=== PATIENT | male | born 1955 | race Caucasian/White ===

== ENCOUNTER 2020-03-13 21:01 | Emergency (ER) | payer OTHER ==
[2020-03-13] MEDS ORDERED: ACETAMINOPHEN 325 MG TABLET PO STA (21:34)
--- NOTE | 2020-03-13 21:34 | ED Physician Documentation ---
History of Present Illness - Stated complaint Stated Complaint: FEVER, WEAKNESS - Chief complaint Chief Complaint: Fever - History obtained from History obtained from: Patient (65-year-old male presents with a chief complaint of fever. He does have a history of liver transplant and 2008. He denies any other complaints. Denies headache, neck pain, cough.Receives his care at the [facility].) Review of Systems Constitutional: reports: Fever Eyes: reports: Reviewed and negative Ears: reports: Reviewed and negative Nose: reports: Reviewed and negative Throat: reports: Reviewed and negative Cardiac: reports: Reviewed and negative Respiratory: reports: Reviewed and negative GI: reports: Reviewed and negative : reports: Reviewed and negative Skin: reports: Reviewed and negative Musculoskeletal: reports: Reviewed and negative Neurologic: reports: Reviewed and negative Psychiatric: reports: Reviewed and negative Endocrine: reports: Reviewed and negative Immunocompromised: reports: Reviewed and negative PD PAST MEDICAL HISTORY - Present Medications Home Medications: Ambulatory Orders Medication Instructions Recorded Confirmed Aspirin 81 mg PO DAILY 03/13/20 03/13/20 Metoprolol Tartrate 100 mg PO BID 03/13/20 03/13/20 Saw [place] 160 mg PO BID 03/13/20 03/13/20 amLODIPine [Norvasc] 5 mg PO ONCE 03/13/20 03/13/20 - Allergies Allergies/Adverse Reactions: Allergies Allergy/AdvReac Type Severity Reaction Status Date / Time No Known Drug Allergies Allergy Verified 03/13/20 21:20 PD ED PE NORMAL - Vitals Vital signs reviewed: Yes - General General: Alert and oriented X 3, No acute distress, Well developed/nourished - HEENT HEENT: PERRL - Neck Neck: Supple, no meningeal sign - Cardiac Cardiac: RRR, No murmur, Strong equal pulses - Respiratory Respiratory: No respiratory distress, Clear bilaterally - Abdomen Abdomen: Normal bowel sounds, Soft, Non tender, Non distended - Derm Derm: Warm and dry - Extremities Extremities: No deformity - Neuro Neuro: Alert and oriented X 3 - Psych Psych: Normal mood, Normal affect Results - Vitals Vitals: Vital Signs - 24 hr 03/13/20 03/13/20 03/14/20 21:18 22:45 01:05 Temperature 38.8 C H 37.7 C H 99.0 C H Heart Rate 96 79 Respiratory 20 14 Rate Blood Pressure 125/75 129/84 H O2 Saturation 93 97 Oxygen O2 Source Room air - EKG (time done) 22:41 Rate: Other (no stemi) - Labs Labs: Laboratory Tests 03/13/20 03/13/20 03/13/20 21:42 21:42 21:42 WBC 10.7 RBC 4.72 Hgb 14.3 Hct 40.5 L MCV 85.8 MCH 30.3 MCHC 35.3 RDW 12.9 Plt Count 163 MPV 9.5 Neut # (Auto) 9.6 H Lymph # (Auto) 0.5 L [place] # (Auto) 0.6 Eos # (Auto) 0.0 Baso # (Auto) 0.0 Absolute Nucleated RBC 0.00 Nucleated RBC % 0.0 Sodium 135 Potassium 4.3 Chloride 99 L Carbon Dioxide 27 Anion Gap 9.0 BUN 17 Creatinine 1.0 Estimated GFR (MDRD) 75 L Glucose 171 H Lactic Acid 1.7 Calcium 8.6 Total Bilirubin 1.2 H AST 21 ALT 10 Alkaline Phosphatase 73 Troponin I High Sens Total Protein 8.3 H Albumin 4.1 Globulin 4.2 Albumin/Globulin Ratio 1.0 Lipase 24 Urine Color Urine Clarity Urine pH Ur Specific [place] Urine Protein Urine Glucose (UA) Urine Ketones Urine Occult Blood Urine Nitrite Urine Bilirubin Urine Urobilinogen Ur Leukocyte Esterase Ur Microscopic Review Urine Culture Comments 03/13/20 03/14/20 21:42 00:15 WBC RBC Hgb Hct MCV MCH MCHC RDW Plt Count MPV Neut # (Auto) Lymph # (Auto) [place] # (Auto) Eos # (Auto) Baso # (Auto) Absolute Nucleated RBC Nucleated RBC % Sodium Potassium Chloride Carbon Dioxide Anion Gap BUN Creatinine Estimated GFR (MDRD) Glucose Lactic Acid Calcium Total Bilirubin AST ALT Alkaline Phosphatase Troponin I High Sens 4.4 Total Protein Albumin Globulin Albumin/Globulin Ratio Lipase Urine Color YELLOW Urine Clarity CLEAR Urine pH 6.5 Ur Specific [place] 1.010 Urine Protein NEGATIVE Urine Glucose (UA) NEGATIVE Urine Ketones NEGATIVE Urine Occult Blood NEGATIVE Urine Nitrite NEGATIVE Urine Bilirubin NEGATIVE Urine Urobilinogen 0.2 (NORMAL) Ur Leukocyte Esterase NEGATIVE Ur Microscopic Review NOT INDICATED Urine Culture Comments NOT INDICATED PD MEDICAL DECISION MAKING - ED course Complexity details: reviewed results (Patient's labs are unremarkable, chest x- ray is unremarkable, lactate is normal. I did recommend admission for observation however the patient would like to be discharged.), re-evaluated patient, considered differential (Bacteremia, COVID-19, pneumonia, UTI, Liver transplant complication.), d/w patient, d/w family, other (I did recommend admission. The patient would like to be discharged she does have medical decision-making capability and capacity and assumes all risk and liability to include any possible adverse event events such as disability and/or .) Departure - Departure Disposition: 01 Home, Self Care Clinical Impression: Fever Qualifiers: Fever type: unspecified Qualified Code(s): R50.9 - Fever, unspecified Condition: Stable Instructions: ED Fever Unconf Cause Follow-Up: your, doctor [Other] - 03/14/20 Comments: Follow-up with your physician today. Discharge Date/Time: 03/14/20 01:05
[2020-03-13 21:58] LABS: BASOPHILS % (AUTO) 0.4 %; EOSINOPHILS % (AUTO) 0.1 %; HGB - HEMOGLOBIN 14.3 g/dL (14.0-18.0); LYMPHOCYTES # (AUTO) 0.5 10^3/uL (1.5-3.5); LYMPHOCYTES % (AUTO) 4.4 %; MEAN CORPUSCULAR HEMOGLOBIN 30.3 pg (27.0-31.0); MEAN CORPUSCULAR HGB CONC 35.3 g/dL (32.0-36.0); MEAN CORPUSCULAR VOLUME 85.8 fL (80.0-94.0); MEAN PLATELET VOLUME 9.5 fL (7.4-11.4); MONOCYTES # (AUTO) 0.6 10^3/uL (0.0-1.0); MONOCYTES % (AUTO) 5.3 %; NEUTROPHILS # (AUTO) 9.6 10^3/uL (1.5-6.6); NEUTROPHILS % (AUTO) 89.3 %; PLT - PLATELET COUNT 163 10^3/uL (130-450); RED BLOOD COUNT 4.72 10^6/uL (4.70-6.10); RED CELL DISTRIBUTION WIDTH 12.9 % (12.0-15.0); WHITE BLOOD COUNT 10.7 x10^3/uL (4.8-10.8)
[2020-03-13 22:14] LABS: ALBUMIN 4.1 g/dL (3.2-5.5); BILIRUBIN,TOTAL 1.2 mg/dL (0.2-1.0); CALCIUM 8.6 mg/dL (8.5-10.3); TOTAL PROTEIN 8.3 g/dL (6.7-8.2)
[2020-03-13] MEDS ORDERED: SODIUM CHLORIDE 0.9% 1,000 ML IV STA (23:01)
[2020-03-13] MEDS ORDERED: IBUPROFEN 800 MG TABLET PO STA (23:19)
[2020-03-14 00:31] LABS: BILIRUBIN,URINE NEGATIVE (NEGATIVE); GLUCOSE, URINE (UA) NEGATIVE (NEGATIVE); KETONES,URINE (UA) NEGATIVE (NEGATIVE); LEUKOCYTE ESTERASE, URINE NEGATIVE (NEGATIVE); NITRITE,URINE NEGATIVE (NEGATIVE); OCCULT BLOOD,URINE NEGATIVE (NEGATIVE); PH,URINE 6.5 PH (5.0-7.5); PROTEIN,URINE NEGATIVE (NEGATIVE); UROBILINOGEN,URINE 0.2 (NORMAL) E.U./dL (NORMAL)
[2020-03-14 00:32] LABS: CLARITY,URINE CLEAR (CLEAR)
[2020-03-14 01:06] VITALS: BP 129/84
--- NOTE | 2020-03-14 08:50 | XRAY Report ---
PROCEDURE: Chest 1 View X-Ray INDICATIONS: fever TECHNIQUE: One view of the chest was acquired. COMPARISON: None FINDINGS: Surgical changes and devices: None. Lungs and pleura: No pleural effusions or pneumothorax. Lungs are clear. Mediastinum: Mediastinal contours appear normal. Heart size is normal. Bones and chest wall: No suspicious bony lesions. Overlying soft tissues appear unremarkable. IMPRESSION: No acute cardiopulmonary disease process. Reviewed by: Reema Molina MD, PhD on 03/14/2020 8:48 AM PDT Approved by: Reema Molina MD, PhD on 03/14/2020 8:48 AM PDT Station ID: [id number]
== END 2020-03-14 01:05 | disposition home or self-care (01) ==
LOC: ED 21:01
DX: R50.9 Fever, unspecified (principal); Z20.828 Contact with and (suspected) exposure to other viral communicable diseases; Z94.4 Liver transplant status; Z79.82 Long term (current) use of aspirin
CPT/HCPCS: 36415; 71045; 80053; 81003; 83605; 83690; 84484; 85025; 87040; 87635; 93005; 99283; 99284; A9270; 81001; 87086

== ENCOUNTER 2022-09-09 13:16 | Outpatient (CLI) | payer OTHER | END 2022-09-09 13:17 | disposition EMS.NT | LOC: EMS 13:16 | DX: Z03.89 Encounter for observation for other suspected diseases and conditions ruled out (principal) ==

== ENCOUNTER 2022-09-09 14:59 | Emergency (ER) | payer OTHER ==
[2022-09-09 15:31] LABS: BASOPHILS % (AUTO) 0.4 %; EOSINOPHILS # (AUTO) 0.2 10^3/uL (0.0-0.7); EOSINOPHILS % (AUTO) 2.7 %; HCT - HEMATOCRIT 44.8 % (42.0-52.0); HGB - HEMOGLOBIN 14.5 g/dL (14.0-18.0); LYMPHOCYTES # (AUTO) 1.1 10^3/uL (1.5-3.5); MEAN CORPUSCULAR HEMOGLOBIN 27.7 pg (27.0-31.0); MEAN CORPUSCULAR HGB CONC 32.4 g/dL (32.0-36.0); MEAN CORPUSCULAR VOLUME 85.7 fL (80.0-94.0); MEAN PLATELET VOLUME 9.6 fL (7.4-11.4); MONOCYTES # (AUTO) 0.4 10^3/uL (0.0-1.0); MONOCYTES % (AUTO) 5.1 %; NEUTROPHILS # (AUTO) 5.4 10^3/uL (1.5-6.6); NEUTROPHILS % (AUTO) 76.4 %; PLT - PLATELET COUNT 171 10^3/uL (130-450); RED BLOOD COUNT 5.23 10^6/uL (4.70-6.10); RED CELL DISTRIBUTION WIDTH 13.7 % (12.0-15.0); WHITE BLOOD COUNT 7.1 x10^3/uL (4.8-10.8)
[2022-09-09 15:37] LABS: INR 1.2 (0.8-1.2)
[2022-09-09 15:45] LABS: ALBUMIN 4.4 g/dL (3.2-5.5); ALBUMIN/GLOBULIN RATIO 1.3 (1.0-2.2); ALKALINE PHOSPHATASE 78 IU/L (42-121); ALT ALANINE AMINOTRANSFERASE < 10 IU/L (10-60); AST ASPARTATE AMINOTRANSFERASE 17 IU/L (10-42); BUN - BLOOD UREA NITROGEN 20 mg/dL (6-20); CALCIUM 9.5 mg/dL (8.5-10.3); CARBON DIOXIDE - CO2 31 mmol/L (21-32); CHLORIDE 98 mmol/L (101-111); CREATININE 1.1 mg/dL (0.6-1.2); GFR - MDRD 67 (>89); GLUCOSE 152 mg/dL (70-100); LIPASE 31 U/L (22-51); POTASSIUM 4.5 mmol/L (3.5-5.0); SODIUM 138 mmol/L (135-145); TOTAL PROTEIN 7.8 g/dL (6.7-8.2)
--- NOTE | 2022-09-09 15:58 | ED Physician Documentation ---
History of Present Illness - Stated complaint Stated Complaint: DIZZY,FALLING,DISORIENTED - Chief complaint Chief Complaint: Neuro - History obtained from History obtained from: Patient - Additonal information Additional information: Patient is a 67-year-old male who presents to the emergency department complaint of dizziness intermittently for the past 3 months since starting clonazepam at night. He was started on clonazepam for "acting out" his dreams. He states that since that time he has slept better, but wakes up in the morning and feels dizzy when he stands up. He states it resolves with sitting down and is usually better throughout the day but still has occasional episodes throughout the day. These last for a few seconds to few minutes at a time. No numbness or tingling. No focal neurological deficits. No headache. No trauma. No fevers. No chills. Review of Systems Constitutional: denies: Fever, Chills Eyes: denies: Photophobia Nose: denies: Rhinorrhea / runny nose, Congestion GI: denies: Vomiting, Diarrhea Skin: denies: Rash Musculoskeletal: denies: Neck pain, Back pain Neurologic: denies: Headache PD PAST MEDICAL HISTORY - Past Medical History Cardiovascular: Hypertension Respiratory: None Neuro: Parkinson's Endocrine/Autoimmune: None GI: None : Benign prostate hypertrophy HEENT: None Psych: None Musculoskeletal: None Derm: None - Past Surgical History Past Surgical History: Yes General: Other - Present Medications Home Medications: Ambulatory Orders Medication Instructions Recorded Confirmed Aspirin 81 mg PO DAILY 03/13/20 03/13/20 Metoprolol Tartrate 100 mg PO BID 03/13/20 03/13/20 Saw [place] 160 mg PO BID 03/13/20 03/13/20 amLODIPine [Norvasc] 5 mg PO ONCE 03/13/20 03/13/20 - Allergies Allergies/Adverse Reactions: Allergies Allergy/AdvReac Type Severity Reaction Status Date / Time No Known Drug Allergies Allergy Verified 09/09/22 15:11 - Social History Does the pt smoke?: No Smoking Status: Former smoker Does the pt drink ETOH?: No Does the pt have substance abuse?: No - Immunizations Immunizations are current?: Yes PD ED PE NORMAL - Vitals Vital signs reviewed: Yes - General General: Alert and oriented X 3, No acute distress - HEENT HEENT: Atraumatic, PERRL, EOMI, Moist mucous membranes - Neck Neck: Supple, no meningeal sign - Cardiac Cardiac: RRR, Strong equal pulses - Respiratory Respiratory: No respiratory distress, Clear bilaterally - Abdomen Abdomen: Soft, Non tender, Non distended - Back Back: No CVA TTP, No spinal TTP - Derm Derm: Warm and dry - Extremities Extremities: No edema, No calf tenderness / cord - Neuro Neuro: Alert and oriented X 3, slitting machine feeder 2-12 intact, No motor deficit, No sensory deficit, Normal speech, Other (No nystagmus. Normal cerebellar Tests. NIH stroke scale 0) Eye Opening: Spontaneous Motor: Obeys Commands Verbal: Oriented GCS Score: 15 - Psych Psych: Normal mood, Normal affect Results - Vitals Vitals: Vital Signs - 24 hr 09/09/22 09/09/22 09/09/22 15:07 16:00 17:23 Temperature 36.8 C Heart Rate 75 83 85 Respiratory 16 16 16 Rate Blood Pressure 133/78 H 142/89 H 142/85 H O2 Saturation 100 100 99 Oxygen O2 Source Room air - EKG (time done) 1540 Rate: Rate (enter#) (71) Rhythm: NSR [place]: Normal Intervals: Normal [place] QRS: Normal Ischemia: Normal ST segments - Labs Labs: Laboratory Tests 09/09/22 09/09/22 09/09/22 15:26 15:26 15:26 WBC 7.1 RBC 5.23 Hgb 14.5 Hct 44.8 MCV 85.7 MCH 27.7 MCHC 32.4 RDW 13.7 Plt Count 171 MPV 9.6 Neut # (Auto) 5.4 Lymph # (Auto) 1.1 L [place] # (Auto) 0.4 Eos # (Auto) 0.2 Baso # (Auto) 0.0 Absolute Nucleated RBC 0.00 Nucleated RBC % 0.0 PT 13.0 H INR 1.2 Sodium 138 Potassium 4.5 Chloride 98 L Carbon Dioxide 31 Anion Gap 9.0 BUN 20 Creatinine 1.1 Estimated GFR (MDRD) 67 L Glucose 152 H Calcium 9.5 Total Bilirubin 1.0 AST 17 ALT < 10 L Alkaline Phosphatase 78 Total Protein 7.8 Albumin 4.4 Globulin 3.4 Albumin/Globulin Ratio 1.3 Lipase 31 - Rads (name of study) Head CT Radiology: Final report received, See rad report (No acute abnormality) PD Medical Decision Making - ED course Complexity details: reviewed results, re-evaluated patient, considered differential, d/w patient ED course: Patient with dizziness, especially in the morning after starting taking clonazepam at bedtime. Likely related to the clonazepam. No acute findings on CBC, coags or chemistry panel to explain his symptoms. No nystagmus. No acute findings on head CT. Normal gait. We will have him follow-up with his doctor to discuss medication changes. No evidence of stroke. No evidence of cerebellar infarct or hemorrhage. No acute neurological deficits. Patient counseled regarding signs and symptoms for which I believe and urgent re- evaluation would be necessary. Patient with good understanding of and agreement to plan and is comfortable going home at this time This document was made in part using voice recognition software. While efforts are made to proofread this document, sound alike and grammatical errors may occur. Departure - Departure Disposition: 01 Home, Self Care Clinical Impression: Dizziness Condition: Good Instructions: ED Dizziness UKO Follow-Up: AVERY ADAMS MD [Primary Care Provider] - Comments: The cause of your symptoms is unclear today, but seems to be related to the clonazepam that you started around the time the dizzy spells started. Your laboratory testing does not show any acute abnormalities today. Your head CT does not show any acute abnormalities. Your doctor may want to perform an MRI. I would recommend contacting your doctor tomorrow to discuss your medications and see if they can decrease the dose of the clonazepam. Please return if you worsen. Discharge Date/Time: 09/09/22 17:23
--- NOTE | 2022-09-09 17:11 | CT Report ---
PROCEDURE: HEAD WO INDICATIONS: dizzy TECHNIQUE: Noncontrast 4.5 mm thick angled axial sections acquired from the foramen magnum to the vertex. For r adiation dose reduction, the following was used: automated exposure control, adjustment of mA and/or kV according to patient size. COMPARISON: None. FINDINGS: Image quality: Excellent. CSF spaces: Basal cisterns are patent. No extra-axial fluid collections. Ventricles are normal in size and shape. Brain: No midline shift. No intracranial masses or hemorrhage. Perry-white matter interface is norm al. Mild diffuse renal cortical volume loss consistent with age-related changes. Heavy intracranial atherosclerotic calcification. Skull and face: Calvarium and visualized facial bones are intact, without suspicious lesions. Sinuses: Visualized sinuses and mastoids are clear. IMPRESSION: 1. No CT evidence of acute intracranial process. 2. No visible soft tissue injury or underlying fracture. Reviewed by: Ana Singer MD on 09/09/2022 4:10 PM [place] Approved by: Ana Singer MD on 09/09/2022 4:10 PM [place] Station ID: [id number]
[2022-09-09 17:23] VITALS: BP 142/85
== END 2022-09-09 17:23 | disposition home or self-care (01) ==
LOC: ED 14:59
DX: R42 Dizziness and giddiness (principal); I10 Essential (primary) hypertension; Z87.891 Personal history of nicotine dependence
CPT/HCPCS: 36415; 80053; 83690; 85025; 85610; 93005; 99283; 99284

== ENCOUNTER 2023-07-28 13:18 | Emergency (ER) | payer OTHER ==
--- NOTE | 2023-07-28 14:12 | ED Physician Documentation ---
History of Present Illness - Stated complaint Stated Complaint: GLF,DIZZY - Chief complaint Chief Complaint: Neuro - History obtained from History obtained from: Patient, Family - History of Present Illness Pain level max: 5 Pain level now: 3 - Additonal information Additional information: Patient is a 68-year-old male with a history of Parkinson's disease who presents to the emergency department after syncope last night. He states he got up and went to the restroom, urinated, stood up was lightheaded, dizzy fell backwards and struck his head on a carbon monoxide detector. He states he went to stand up felt dizzy again and passed out a second time. Currently he states he has a mild headache and a small bump on the back of his head. No neck pain. Has chronic back pain that is unchanged. No chest pain. No shortness of breath. He was recently seen at [facility] and diagnosed with a "URI" and placed on cough medication. Review of Systems Constitutional: denies: Fever, Chills GI: denies: Nausea, Vomiting, Diarrhea Skin: denies: Rash Musculoskeletal: denies: Neck pain, Back pain Neurologic: denies: Headache PD PAST MEDICAL HISTORY - Past Medical History Cardiovascular: Hypertension Respiratory: None Neuro: Parkinson's Endocrine/Autoimmune: None GI: None : Benign prostate hypertrophy HEENT: None Psych: None Musculoskeletal: None Derm: None - Past Surgical History Past Surgical History: Yes General: Other - Present Medications Home Medications: Ambulatory Orders Medication Instructions Recorded Confirmed Aspirin 81 mg PO DAILY 03/13/20 03/13/20 Metoprolol Tartrate 100 mg PO BID 03/13/20 03/13/20 Saw [place] 160 mg PO BID 03/13/20 03/13/20 amLODIPine [Norvasc] 5 mg PO ONCE 03/13/20 03/13/20 - Allergies Allergies/Adverse Reactions: Allergies Allergy/AdvReac Type Severity Reaction Status Date / Time No Known Drug Allergies Allergy Verified 09/09/22 15:11 - Social History Does the pt smoke?: No Smoking Status: Never smoker Does the pt drink ETOH?: No Does the pt have substance abuse?: No - Immunizations Immunizations are current?: Yes PD ED PE NORMAL - Vitals Vital signs reviewed: Yes - General General: Alert and oriented X 3, No acute distress - HEENT HEENT: Moist mucous membranes - Neck Neck: Supple, no meningeal sign - Cardiac Cardiac: RRR, Strong equal pulses - Respiratory Respiratory: No respiratory distress, Clear bilaterally - Abdomen Abdomen: Soft, Non tender, Non distended - Back Back: No CVA TTP, No spinal TTP - Derm Derm: Warm and dry - Extremities Extremities: No edema, No calf tenderness / cord - Neuro Neuro: Alert and oriented X 3, bowling ball finisher 2-12 intact, No motor deficit, No sensory deficit, Normal speech Eye Opening: Spontaneous Motor: Obeys Commands Verbal: Oriented GCS Score: 15 - Psych Psych: Normal mood, Normal affect Results - Vitals Vitals: Vital Signs - 24 hr 07/28/23 07/28/23 07/28/23 13:27 15:59 17:14 Temperature 37.2 C 35.7 C L 35.7 C L Heart Rate 89 81 83 Respiratory 18 18 11 L Rate Blood Pressure 103/66 127/83 H 123/105 H O2 Saturation 96 98 97 Oxygen O2 Source Room air - EKG (time done) 1437 EKG releavant findings:: EKG personally interpreted by author of this note. Relevant findings are: Rate: Rate (enter#) (60) Rhythm: NSR [place]: Normal Intervals: Normal [place] QRS: Normal Ischemia: Normal ST segments - Labs Labs: Laboratory Tests 07/28/23 07/28/23 07/28/23 14:30 14:30 14:33 WBC 8.1 RBC 4.74 Hgb 13.7 L Hct 40.8 L MCV 86.1 MCH 28.9 MCHC 33.6 RDW 13.0 Plt Count 208 MPV 8.9 Neut # (Auto) 6.2 Lymph # (Auto) 1.2 L [place] # (Auto) 0.3 Eos # (Auto) 0.2 Baso # (Auto) 0.1 Absolute Nucleated RBC 0.00 Nucleated RBC % 0.0 Sodium 137 Potassium 4.2 Chloride 100 L Carbon Dioxide 31 Anion Gap 6.0 BUN 15 Creatinine 0.9 Estimated GFR (MDRD) 84 L Glucose 242 H Calcium 9.6 Total Bilirubin 0.7 AST 17 ALT 4 L Alkaline Phosphatase 99 Troponin I High Sens 2.3 Total Protein 7.1 Albumin 4.2 Globulin 2.9 Albumin/Globulin Ratio 1.4 Lipase 14 Urine Color YELLOW Urine Clarity CLEAR Urine pH 6.0 Ur Specific [place] >=1.030 H Urine Protein 100 H Urine Glucose (UA) 100 H Urine Ketones 15 H Urine Occult Blood NEGATIVE Urine Nitrite NEGATIVE Urine Bilirubin NEGATIVE Urine Urobilinogen 2 H Ur Leukocyte Esterase NEGATIVE Urine RBC 0-5 Urine WBC 11-25 H Ur Squamous Epith Cells NONE SEEN Urine Crystals 6-10 Calcium Oxalate Urine Bacteria None Seen Urine Casts 6-10 Hyaline Casts Urine Mucus Marked Strands Ur Microscopic Review INDICATED Urine Culture Comments NOT INDICATED - Rads (name of study) Head CT Relevant Findings:: Final report received, See rad report Chest x-ray Relevant Findings:: Final report received, See rad report PD Medical Decision Making - ED course Complexity details: reviewed results, re-evaluated patient, considered differential, d/w patient ED course: No acute findings on head CT, chest x-ray, EKG, laboratory testing. Pain well- controlled with IV morphine. Patient with likely micturition associated syncope last night. Patient is well-appearing, nontoxic. Afebrile. He did start on a new Phenergan cough medication as well which may have contributed. Ambulating without difficulty here. No focal neurological deficits. No evidence of acute coronary syndrome. No evidence of PE. Patient counseled regarding signs and symptoms for which I believe and urgent re-evaluation would be necessary. Patient with good understanding of and agreement to plan and is comfortable going home at this time This document was made in part using voice recognition software. While efforts are made to proofread this document, sound alike and grammatical errors may occur. Departure - Departure Disposition: 01 Home, Self Care Clinical Impression: Syncope Qualifiers: Syncope type: unspecified Qualified Code(s): R55 - Syncope and collapse Closed head injury Qualifiers: Encounter type: initial encounter Qualified Code(s): S09.90XA - Unspecified injury of head, initial encounter Condition: Good Instructions: ED Head Injury Closed, ED Fainting Unkn Cause Follow-Up: your,doctor in 1 week [Other] Comments: Your head CT does not show any acute abnormalities today. Please follow-up with your doctor for further care. Please return if you worsen. Your laboratory testing does not show any acute abnormalities as well, but you do appear to be mildly dehydrated, make sure you are drinking plenty of fluids at home. Please return if you worsen. Forms: PCP List Discharge Date/Time: 07/28/23 17:41
[2023-07-28 14:37] LABS: BASOPHILS # (AUTO) 0.1 10^3/uL (0.0-0.1); BASOPHILS % (AUTO) 0.6 %; EOSINOPHILS # (AUTO) 0.2 10^3/uL (0.0-0.7); EOSINOPHILS % (AUTO) 2.6 %; HCT - HEMATOCRIT 40.8 % (42.0-52.0); HGB - HEMOGLOBIN 13.7 g/dL (14.0-18.0); LYMPHOCYTES # (AUTO) 1.2 10^3/uL (1.5-3.5); LYMPHOCYTES % (AUTO) 14.9 %; MEAN CORPUSCULAR HEMOGLOBIN 28.9 pg (27.0-31.0); MEAN CORPUSCULAR HGB CONC 33.6 g/dL (32.0-36.0); MEAN CORPUSCULAR VOLUME 86.1 fL (80.0-94.0); MEAN PLATELET VOLUME 8.9 fL (7.4-11.4); MONOCYTES # (AUTO) 0.3 10^3/uL (0.0-1.0); MONOCYTES % (AUTO) 4.1 %; NEUTROPHILS # (AUTO) 6.2 10^3/uL (1.5-6.6); NEUTROPHILS % (AUTO) 77.1 %; PLT - PLATELET COUNT 208 10^3/uL (130-450); RED BLOOD COUNT 4.74 10^6/uL (4.70-6.10); WHITE BLOOD COUNT 8.1 x10^3/uL (4.8-10.8)
[2023-07-28 14:43] LABS: GLUCOSE, URINE (UA) 100 mg/dL (NEGATIVE); KETONES,URINE (UA) 15 mg/dL (NEGATIVE); LEUKOCYTE ESTERASE, URINE NEGATIVE (NEGATIVE); NITRITE,URINE NEGATIVE (NEGATIVE); OCCULT BLOOD,URINE NEGATIVE (NEGATIVE); PROTEIN,URINE 100 mg/dL (NEGATIVE); UROBILINOGEN,URINE 2 E.U./dL (NORMAL)
[2023-07-28 14:50] LABS: ALBUMIN 4.2 g/dL (3.2-5.5); ALBUMIN/GLOBULIN RATIO 1.4 (1.0-2.2); BILIRUBIN,TOTAL 0.7 mg/dL (0.2-1.0); CALCIUM 9.6 mg/dL (8.5-10.3); CREATININE 0.9 mg/dL (0.6-1.3); POTASSIUM 4.2 mmol/L (3.5-4.5); TOTAL PROTEIN 7.1 g/dL (6.4-8.9)
[2023-07-28 14:55] LABS: BILIRUBIN,URINE NEGATIVE (NEGATIVE); CLARITY,URINE CLEAR (CLEAR); ICTOTEST,URINE NEGATIVE
[2023-07-28 14:56] LABS: BACTERIA,URINE None Seen /HPF (None Seen); CASTS, URINE 6-10 Hyaline Casts /LPF; CRYSTALS,URINE 6-10 Calcium Oxalate /LPF; MUCUS,URINE Marked Strands; RBC,URINE 0-5 /HPF (0-5); SQUAMOUS EPITHELIAL CELL,UR NONE SEEN (<= Few)
[2023-07-28 15:45] LABS: TROPONIN I HIGH SENSITIVITY 2.3 ng/L (2.3-19.7)
--- NOTE | 2023-07-28 16:02 | XRAY Report ---
PROCEDURE: Chest 1 View X-Ray INDICATIONS: Chest Pain TECHNIQUE: One view of the chest was acquired. COMPARISON: None. FINDINGS: Surgical changes and devices: None. Lungs and pleura: No pleural effusions or pneumothorax. Lungs are clear. Mediastinum: Mediastinal contours appear normal. Heart size is normal. Bones and chest wall: No suspicious bony lesions. Overlying soft tissues appear unremarkable. IMPRESSION: No acute cardiopulmonary process. Reviewed by: Eleno Barbosa MD on 07/28/2023 3:01 PM [facility] Approved by: Eleno Barbosa MD on 07/28/2023 3:01 PM [facility] Station ID: [id number]
[2023-07-28] MEDS ORDERED: MORPHINE 2 MG/ML CARPUJECT IVP STA ×2 (16:19→17:19)
--- NOTE | 2023-07-28 17:05 | CT Report ---
PROCEDURE: HEAD WO INDICATIONS: syncope, head injury TECHNIQUE: Noncontrast 4.5 mm thick angled axial sections acquired from the foramen magnum to the vertex. For r adiation dose reduction, the following was used: automated exposure control, adjustment of mA and/or kV according to patient size. COMPARISON: None. FINDINGS: Image quality: Excellent. CSF spaces: Basal cisterns are patent. No extra-axial fluid collections. Ventricles are normal in size and shape. Brain: Diffuse parenchymal volume loss with symmetric expansion of the CSF containing spaces. Periven tricular white matter hypodensities consistent chronic microvascular ischemic disease. No midline contreras ft. No intracranial masses or hemorrhage. Perry-white matter interface is normal. Skull and face: Calvarium and visualized facial bones are intact, without suspicious lesions. Sinuses: Visualized sinuses and mastoids are clear. IMPRESSION: No acute intracranial pathology. Sequela of chronic microvascular ischemic disease. Reviewed by: Eleno Barbosa MD on 07/28/2023 4:04 PM [facility] Approved by: Eleno Barbosa MD on 07/28/2023 4:04 PM [facility] Station ID: [id number]
[2023-07-28 17:22] VITALS: BP 123/105; O2SAT 97
== END 2023-07-28 17:41 | disposition home or self-care (01) ==
LOC: ED 13:18
DX: S09.90XA Unspecified injury of head, initial encounter (principal); W18.30XA Fall on same level, unspecified, initial encounter; G20.A1 Parkinson's disease without dyskinesia, without mention of fluctuations
CPT/HCPCS: 36415; 80053; 81001; 81003; 83690; 84484; 85025; 87086; 93005; 96374; 96376; 99283

== ENCOUNTER 2023-11-11 18:12 | Emergency (ER) | payer OTHER ==
[2023-11-11 18:37] VITALS: BP 140/90; O2SAT 98
--- NOTE | 2023-11-11 19:51 | XRAY Report ---
PROCEDURE: Ribs w/PA Chest 3+V LT INDICATIONS: fall TECHNIQUE: 2 views of the ribs were acquired, along with a single view chest. COMPARISON: 07/28/2023 FINDINGS: Surgical changes and devices: None. Bones and chest wall: No fractures or dislocations. No suspicious bony lesions. Overlying soft tis sues appear unremarkable. Lungs and pleura: No pleural effusions or pneumothorax. Lungs appear clear. Mediastinum: Mediastinal contours appear normal. Heart size is normal. IMPRESSION: No displaced rib fracture or pneumothorax. Reviewed by: Sancho Stroud MD on 11/11/2023 7:49 PM PDT Approved by: Sancho Stroud MD on 11/11/2023 7:49 PM PDT Station ID: [id number]
--- NOTE | 2023-11-11 21:00 | ED Physician Documentation ---
PD HPI Fall - Stated complaint Stated Complaint: FALL/RIB PX - Chief complaint Chief Complaint: Trauma Ch/Bk - History obtained from History obtained from: Patient - Additional information Additional information: Patient is a 68-year-old male with a history of Parkinson's presenting for evaluation of left chest wall pain after a trip and fall in the garage today. Patient denies hitting his head or LOC. Patient states his only area of pain is to the left chest wall where he bumped himself. He does not take a blood thinner. Has not taken anything yet for pain. Review of Systems Constitutional: denies: Fever Cardiac: reports: Chest pain / pressure Respiratory: denies: Dyspnea GI: denies: Abdominal Pain, Vomiting, Diarrhea Musculoskeletal: denies: Back pain Neurologic: denies: Head injury PD PAST MEDICAL HISTORY - Past Medical History Past Medical History: Yes Cardiovascular: Hypertension Respiratory: None Neuro: Parkinson's Endocrine/Autoimmune: None GI: None : Benign prostate hypertrophy HEENT: None Psych: None Musculoskeletal: None Derm: None - Past Surgical History Past Surgical History: Yes General: Other - Present Medications Home Medications: Ambulatory Orders Medication Instructions Recorded Confirmed Aspirin 81 mg PO DAILY 03/13/20 03/13/20 Metoprolol Tartrate 100 mg PO BID 03/13/20 03/13/20 Saw Astatula 160 mg PO BID 03/13/20 03/13/20 amLODIPine [Norvasc] 5 mg PO ONCE 03/13/20 03/13/20 Lidocaine [Lidoderm] 1 each TP DAILY PRN #10 patch 11/11/23 Oxycodone HCl/Acetaminophen 1 each PO Q6H PRN #10 tablet 11/11/23 [Percocet 5-325 mg Tablet] - Allergies Allergies/Adverse Reactions: Allergies Allergy/AdvReac Type Severity Reaction Status Date / Time No Known Drug Allergies Allergy Verified 11/11/23 18:18 - Social History Does the pt smoke?: No Smoking Status: Never smoker Does the pt drink ETOH?: No Does the pt have substance abuse?: No - Immunizations Immunizations are current?: Yes PD ED PE NORMAL - General General: Alert and oriented X 3, No acute distress, Well developed/nourished - HEENT HEENT: Atraumatic, Moist mucous membranes, Pharynx benign - Neck Neck: Supple, no meningeal sign, No bony TTP - Cardiac Cardiac: RRR, Strong equal pulses, Other (Left lower chest wall tenderness, no crepitus, no significant bruising) - Respiratory Respiratory: No respiratory distress, Clear bilaterally - Abdomen Abdomen: Normal bowel sounds, Soft, Non tender, Non distended - Back Back: No spinal TTP - Derm Derm: Warm and dry - Neuro Neuro: Alert and oriented X 3, No motor deficit, No sensory deficit, Normal speech Eye Opening: Spontaneous Motor: Obeys Commands Verbal: Oriented GCS Score: 15 Results - Vitals Vitals: Vital Signs - 24 hr 11/11/23 18:18 Temperature 36.8 C Heart Rate 100 Respiratory 16 Rate Blood Pressure 140/90 H O2 Saturation 98 Oxygen O2 Source Room air PD Medical Decision Making - ED course Complexity details: reviewed results, d/w patient ED course: Patient is a 68-year-old male with a history of Parkinson's presenting for evaluation of left-sided chest wall pain after trip and fall and striking the chest. Vital signs are stable. No head injury. Not on blood thinners. Chest x-ray with rib views was obtained which I reviewed I see no fracture or pneumoth orax. Discussed possibility of nondisplaced rib fracture. Patient counseled on treatment plan including use of narcotic pain medication, incentive spirometer and lidocaine patches. Advised on need for follow-up with primary care doctor.Aware of usual return precautions. No signs of trauma elsewhere. Departure - Departure Disposition: 01 Home, Self Care Clinical Impression: Left-sided chest wall pain, Fall at home Condition: Stable Instructions: ED Contusion Chest Wall, ED Contusion Rib Prescriptions: Lidocaine [Lidoderm] 1 each TP DAILY PRN #10 patch PRN Reason: Moderate Pain (Level 4-6) Oxycodone HCl/Acetaminophen [Percocet 5-325 mg Tablet] 1 each PO Q6H PRN #10 tablet PRN Reason: pain Comments: Your x-ray does not show signs of any rib fractures or collapsed lung. Your pain may be related to bruising on the ribs. I sent a small amount of narcotic pain medication to [facility] in [place] along with lidocaine patches. Please also use the incentive spirometer several times a day to make sure you are getting good breaths in. I would recommend follow-up with your primary care doctor and return to the ER with any worsening symptoms such as increased pain. I am prescribing a short course of narcotic pain medication for you. These are potentially dangerous and addictive medications that should be used carefully. These medications may constipate you. Take an [id number] stool softener (docusate) twice daily with plenty of water while taking these medications. If you go 24 hours without a bowel movement, take [id number] miralax, per package instructions. Do not drink or drive while taking these medications. If you received narcotic or sedating medications while in the emergency department, do not drive for 24 hours. Store this medication in a safe, secure place and out of reach of children. It is a violation of federal law to give or sell this medication to another person or to use in a manner other than prescribed. The ED will not refill narcotic prescriptions, including prescriptions lost or stolen. To dispose of unwanted medications: 1. [facility] at [address] in [place] has a medication drop box. They accept prescription medications (in pill form) Saturday through Saturday 9:00 a.m. to 5:00 p.m. 2. The [facility] [employer] accepts prescription medications (in pill form only) for disposal year round. Call for more information. 3. Contact the [facility] for the next [facility] sponsored prescription drug collection event. , [phone], or [phone]; Note that many narcotic pain relievers also contain Tylenol/acetaminophen. Please ensure that your total dose of acetaminophen from all sources does not exceed 3 g (3000 mg) per day. Forms: PCP List Discharge Date/Time: 11/11/23 21:36
[2023-11-11] MEDS: oxyCODONE/ACET 5/325 Prepack 4 PO STA (21:09)
[2023-11-11] MEDS: LIDOCAINE PATCH 5% TOP STA (21:09)
== END 2023-11-11 21:36 | disposition home or self-care (01) ==
LOC: ED 18:12
DX: R07.9 Chest pain, unspecified (principal); W18.39XA Other fall on same level, initial encounter; Y92.009 Unspecified place in unspecified non-institutional (private) residence as the place of occurrence of the external cause; G20.A1 Parkinson's disease without dyskinesia, without mention of fluctuations; I10 Essential (primary) hypertension; N40.0 Benign prostatic hyperplasia without lower urinary tract symptoms; Z79.82 Long term (current) use of aspirin; Z79.899 Other long term (current) drug therapy
CPT/HCPCS: 71101; 99283; 99284; A9270

== ENCOUNTER 2023-11-15 05:53 | Observation (INO) | payer OTHER ==
--- NOTE | 2023-11-15 06:17 | ED Physician Documentation ---
History of Present Illness - Stated complaint Stated Complaint: SOA/L SIDE PAIN - Chief complaint Chief Complaint: Resp - History obtained from History obtained from: Patient - Additonal information Additional information: 68-year-old man with history of multiple falls in the past presents with left- sided rib pain status post fall 11/10. Patient presented to the ED at that time and was not found to have any fractures on x-ray, discharged home with Percocet prescription but he has now run out and is in acute pain. Also states that he feels some shortness of breath. PD PAST MEDICAL HISTORY - Past Medical History Cardiovascular: Hypertension Respiratory: None Neuro: Parkinson's Endocrine/Autoimmune: None GI: None : Benign prostate hypertrophy HEENT: None Psych: None Musculoskeletal: None Derm: None - Past Surgical History Past Surgical History: Yes General: Other - Present Medications Home Medications: Ambulatory Orders Medication Instructions Recorded Confirmed Aspirin 81 mg PO DAILY 03/13/20 11/15/23 amLODIPine [Norvasc] 5 mg PO DAILY 03/13/20 11/15/23 Lidocaine [Lidoderm] 1 each TP DAILY PRN #10 patch 11/11/23 11/15/23 HYDROcodone/ACET 10/325 [[place] 10 1 tablet PO Q4-6H PRN #15 tablet 11/15/23 mg/325 mg] Omeprazole 20 mg PO DAILY 11/15/23 11/15/23 Tacrolimus [Prograf] 1 cap PO BID 11/15/23 11/15/23 metFORMIN [Glucophage] 500 mg PO BIDWM 11/15/23 11/15/23 - Allergies Allergies/Adverse Reactions: Allergies Allergy/AdvReac Type Severity Reaction Status Date / Time No Known Drug Allergies Allergy Verified 11/15/23 06:06 - Social History Does the pt smoke?: No Smoking Status: Never smoker Does the pt drink ETOH?: No Does the pt have substance abuse?: No - Immunizations Immunizations are current?: Yes PD ED PE NORMAL - Vitals Vital signs reviewed: Yes - General General: Alert and oriented X 3, No acute distress, Well developed/nourished - HEENT HEENT: Atraumatic, PERRL, EOMI, Moist mucous membranes, Pharynx benign - Neck Neck: Supple, no meningeal sign - Cardiac Cardiac: RRR - Respiratory Respiratory: No respiratory distress, Clear bilaterally, Other (L ribcage ttp) Results - Vitals Vitals: Vital Signs - 24 hr 11/15/23 06:06 Temperature 36.6 C Heart Rate 115 H Respiratory 18 Rate Blood Pressure 144/80 H O2 Saturation 88 L Oxygen O2 Source Room air Oxygen Flow Rate 4 PD Medical Decision Making - ED course ED course: 68yM p/w persistent L rib pain s/p fall [address] chest ordered to evaluate for occult fracture the initial xray didn't tile picker. patient is hypoxic in 80s on arrival, likely due to not taking deep breath 2/2 pain. Initially ordered percoset but he states this was not effective therefore it was returned and IM dilaudid was provided with improvement in pain. Plan to endorse to incoming daytime ED MD at 7am shift change awaiting CT results. Rx for hydrocodone sent electronically to pharmacy. Departure - Departure Clinical Impression: Rib pain on left side, Hypoxia Condition: Stable Prescriptions: HYDROcodone/ACET 10/325 [[place] 10 mg/325 mg] 1 tablet PO Q4-6H PRN #15 tablet PRN Reason: Pain >8 Comments: You were seen in the emergency department for rib pain. Hydrocodone prescription was sent to your pharmacy. Please follow-up with your primary care provider and return to the emergency dep artment if you have any new or worsening symptoms or other concerns. Forms: PCP List
[2023-11-15] MEDS: HYDROmorphone 1 MG/ML CARPUJECT IM STA (06:42)
[2023-11-15] MEDS: oxyCODONE/ACET 5/325 Prepack 4 PO STA (06:56)
--- NOTE | 2023-11-15 08:18 | CT Report ---
PROCEDURE: Chest WO INDICATIONS: fall, rib pain TECHNIQUE: A CT scan of the chest was performed. Intravenous contrast media was not administered. Images were re corded and evaluated at appropriate window settings. Reformats: axial MIP of the chest, coronal and s agittal. For radiation dose reduction, the following was used: automated exposure control, adjustment of mA and/or kV according to patient size. COMPARISON: Rib series dated 11/11/2023 and chest radiograph dated 07/28/2023. FINDINGS: Image quality: Diagnostic. Chest wall and lower neck: Hypodense nodule involving mid to lower pole left thyroid lobe measures 1. 7 x 1.3 cm in size series 2 image 4. No axillary or supraclavicular adenopathy by size. Mild chest wa ll soft tissue swelling in lateral aspect of left lower lung field is seen adjacent to the fractured lower ribs. Lungs and pleura: Patchy airspace opacities are noted in posterior medial aspect of right lower lobe, anterolateral aspect of left lower lobe and the posterior lateral aspect of left lingular segment. N o pleural effusions. No pneumothorax. No suspicious pulmonary nodules which require follow up. Mediastinum: Heart size is normal. No pericardial effusion. No large vessel abnormality. 3 vessel cor onary artery atherosclerotic disease is seen. No mediastinal adenopathy by size criteria. Bones: No aggressive osseous abnormality. Minimally displaced fracture involving left lateral eighth and ninth rib as well as left posterior 11th rib. No gross right-sided rib fracture is seen. No acute vertebral body compression fracture. Upper Abdomen: Gallbladder is surgically absent. No gross abnormality is seen in visualized portion o f liver, spleen, and bilateral adrenal glands.. IMPRESSION: 1. Minimally displaced fractures involving left eighth, ninth and 11th ribs with mild adjacent chest wall soft tissue swelling. 2. Likely discoid atelectasis at lateral lower lung merchant as described above. No pleural effusion or pneumothorax. Airway is patent. 3. No mediastinal hematoma. No lymphadenopathy by size criteria. 4. 1.7 x 1.3 cm hypodense nodule in left thyroid lobe. Consider nonemergent ultrasound of thyroid gla nd for further workup if clinically indicated. Findings are concordant with preliminary interpretation provided by [facility]. Reviewed by: Chiki Doyle MD on 11/15/2023 8:16 AM PDT Approved by: Chiki Doyle MD on 11/15/2023 8:16 AM PDT Station ID: [id number]
[2023-11-15] MEDS: LIDOCAINE PATCH 5% TOP STA (09:09)
[2023-11-15] MEDS: HYDROmorphone 0.5 MG/0.5 ML SYRINGE IVP STA (09:09)
[2023-11-15] MEDS: KETOROLAC 15 MG/ML VIAL IVP STA (09:09)
[2023-11-15] MEDS: ALBUTEROL NEB 2.5 MG/3 ML INH STA (09:12)
[2023-11-15 10:30] LABS: BASOPHILS % (AUTO) 0.5 %; EOSINOPHILS # (AUTO) 0.2 10^3/uL (0.0-0.7); EOSINOPHILS % (AUTO) 2.3 %; HCT - HEMATOCRIT 38.6 % (42.0-52.0); HGB - HEMOGLOBIN 12.7 g/dL (14.0-18.0); LYMPHOCYTES # (AUTO) 1.1 10^3/uL (1.5-3.5); LYMPHOCYTES % (AUTO) 14.2 %; MEAN CORPUSCULAR HEMOGLOBIN 28.9 pg (27.0-31.0); MEAN CORPUSCULAR HGB CONC 32.9 g/dL (32.0-36.0); MEAN CORPUSCULAR VOLUME 87.7 fL (80.0-94.0); MEAN PLATELET VOLUME 10.1 fL (7.4-11.4); MONOCYTES # (AUTO) 0.4 10^3/uL (0.0-1.0); MONOCYTES % (AUTO) 4.6 %; NEUTROPHILS # (AUTO) 6.1 10^3/uL (1.5-6.6); PLT - PLATELET COUNT 166 10^3/uL (130-450); RED CELL DISTRIBUTION WIDTH 13.4 % (12.0-15.0); WHITE BLOOD COUNT 7.8 x10^3/uL (4.8-10.8)
[2023-11-15 10:54] LABS: ALBUMIN 3.9 g/dL (3.2-5.5); ALBUMIN/GLOBULIN RATIO 1.6 (1.0-2.2); BILIRUBIN,TOTAL 0.9 mg/dL (0.2-1.0); CALCIUM 9.4 mg/dL (8.5-10.3); CREATININE 0.8 mg/dL (0.6-1.3); TOTAL PROTEIN 6.4 g/dL (6.4-8.9)
[2023-11-15] MEDS ORDERED: ONDANSETRON ODT 4 MG TABLET TL PRN (11:34)
[2023-11-15] MEDS ORDERED: ACETAMINOPHEN 325 MG TABLET PO PRN (11:34)
[2023-11-15] MEDS ORDERED: SODIUM CHLORIDE FLUSH 0.9% 10 ML SYRINGE IVP PRN (11:34)
[2023-11-15] MEDS ORDERED: LIDOCAINE PATCH 5% TOP PRN (11:43)
--- NOTE | 2023-11-15 11:51 | HISTORY & PHYSICAL EXAMINATION ---
Chief Complaint - Chief Complaint Chief Complaint: rib fracture History of Present Illness - Admitted From Admitted From:: ED - History Obtained From History obtained from: patient and - History of Present Illness HPI Comment/Other: 68yoM s/p mechanical fall from standing 4 days ago in which he fell landing his left chest wall onto a box. Did not strike head, no LOC. Was evaluated in ED with CXR and discharged home. SInce then, left chest pain has persisted, last ni ght was nearly unable to get out of bed due to pain, and also having some sob, thus represented to ED. Denies cough, fever, chills. Is having left chest pain with deep inspiration. Denies abdominal pain or nausea, though has reduced appetite 2/2 pain. Denies diarrhea or blood in stool. History - Past Medical History Cardiovascular: reports: Hypertension Respiratory: reports: None Neuro: reports: Parkinson's Endocrine/Autoimmune: reports: None GI: reports: None, GERD, Other (history of liver transplant in 2007 for hep C - discharged from transplant surgeon years ago ) : reports: Benign prostate hypertrophy HEENT: reports: None Psych: reports: None Musculoskeletal: reports: None Derm: reports: None - Past Surgical History General: reports: Liver surgery (liver transplant 2007), Other - Family & Social History Living arrangement: At home (with , ambulates with cane ) Living Situation: With spouse/s.o. - Substance History Use: Uses substance without health or social issues: NONE Meds/Allgy - Home Medications Home Medications: Ambulatory Orders Medication Instructions Recorded Confirmed Aspirin 81 mg PO DAILY 03/13/20 11/15/23 amLODIPine [Norvasc] 5 mg PO DAILY 03/13/20 11/15/23 Lidocaine [Lidoderm] 1 each TP DAILY PRN #10 patch 11/11/23 11/15/23 HYDROcodone/ACET 10/325 [[place] 10 1 tablet PO Q4-6H PRN #15 tablet 11/15/23 mg/325 mg] Omeprazole 20 mg PO DAILY 11/15/23 11/15/23 Tacrolimus [Prograf] 1 cap PO BID 11/15/23 11/15/23 metFORMIN [Glucophage] 500 mg PO BIDWM 11/15/23 11/15/23 - Allergies Allergies/Adverse Reactions: Allergies Allergy/AdvReac Type Severity Reaction Status Date / Time No Known Drug Allergies Allergy Verified 11/15/23 06:06 Review of Systems - Cardiovascular Cariovascular: reports: Chest pain (left rib pain) - Respiratory Respiratory: reports: Wheezing, SOB at rest - Gastrointestinal Gastrointestinal: reports: Poor appetite Prior Level of Functionality: lives at home with , ambulates with cane, independent with ADL Exam - Vital Signs Reviewed Vital Signs: Yes Vital Signs: Vital Signs x48h Temp Pulse Resp BP Pulse Ox O2 Flow Rate 11/15/23 10:55 92 16 123/78 98 2 11/15/23 09:59 87 L 1 11/15/23 09:24 79 15 1 11/15/23 09:15 88 L 11/15/23 09:09 98 17 129/90 H 91 L 11/15/23 08:45 81 16 87 L 11/15/23 07:16 98 16 119/86 H 92 11/15/23 06:06 36.6 C 115 H 18 144/80 H 88 L - Physical Exam General Appearance: positive: No acute distress, Alert Eyes Bilateral: positive: Normal inspection ENT: positive: ENT inspection nml Neck: positive: Nml inspection Respiratory: positive: Breath sounds nml, Other (tender to palpation along left lower ribs laterally, on 2L O2) Cardiovascular: positive: Regular rate & rhythm Peripheral Pulses: positive: 2+ Abdomen: positive: Non-tender Back: positive: Nml inspection Skin: positive: Color nml Extremities: positive: Non-tender, Full ROM Neurologic/Psychiatric: positive: Oriented x3 Conclusion/Plan - Problem List (1) Hypoxia Conclusion/Plan: O2 sats into high 80s associated with rib fractures - admit for supplemental O2 (2) Rib pain on left side Conclusion/Plan: multimodal pain control for left sided rib fractures x3 (3) Ribs, multiple fractures Conclusion/Plan: multimodal pain control and supplemental O2 for 3 rib fractures Qualifiers: Encounter type: subsequent encounter Fracture type: closed Laterality: left Qualified Code(s): S22.42XD - Multiple fractures of ribs, left side, subsequent encounter for fracture with routine healing (4) Left-sided chest wall pain Conclusion/Plan: multimodal pain control, associated with rib fractures x3 (5) Fall at home Conclusion/Plan: mechanical fall from standing, no further evaluation required (ie no syncopal evaluation needed) admitted for resultant rib fractures Qualifiers: Encounter type: subsequent encounter Qualified Code(s): W19.XXXD - Unspecified fall, subsequent encounter; Y92.009 - Unspecified place in unspecified non-institutional (private) residence as the place of occurrence of the external cause - Lab Results Fish Bones: 11/15/23 09:18 11/15/23 09:18 - Diagnostic Imaging Results Diagnostic Imaging Results: positive: Final report reviewed (Left rib 8, 9, 11 fractures. No associated pleural effusion, pneumonia, pneumothorax. Associated atelectasis.) Core Measures - Anticipated LOS I expect patient to be DC'd or transferred within 96 hours.: Yes - DVT/VTE - Prophylaxis VTE/DVT Device ordered at admit?: Yes VTE/DVT Prophylaxis med ordered at admit?: Yes
[2023-11-15] MEDS: IBUPROFEN 600 MG TABLET PO PRN (13:01)
[2023-11-15] MEDS: HYDROmorphone 0.5 MG/0.5 ML SYRINGE IVP PRN (13:02)
[2023-11-15] MEDS: oxyCODONE 5 MG TABLET PO PRN (15:32)
[2023-11-15] MEDS: metFORMIN 500 MG TABLET PO SCH (16:35)
[2023-11-15] MEDS: SODIUM CHLORIDE FLUSH 0.9% 10 ML SYRINGE IVP SCH (16:36)
[2023-11-15] MEDS: CARBIDOPA/LEVODOPA 25 MG/100 MG TABLET PO SCH (16:36)
--- NOTE | 2023-11-15 17:58 | PHARMACY PROGRESS NOTE ---
- Best Possible Medication History Admit Date and Time: 11/15/23 1134 Processed by: Pharmacy Medications reviewed in ED?: Yes Medication History completed: Yes Patient Interview: Completed Secondary Source(s): Pharmacy records, Insurance records As the person ultimately responsible for medication therapy, providers are able to order a medication from an existing home medication list in [facility] via the "Reconcile Routine" prior to Confirmation of that medication by child support specialist. Such practice is discouraged except when the physician, in their clinical judgment, deems that a medical need exists for a medication without regard to previous use.
--- NOTE | 2023-11-15 21:26 | ED Physician Documentation ---
ED Addendum - Addendum Addendum: 11/15/23 21:19 Took over care at change of shift. Pt with some increased pain in injured area and given repeat dose of IV medication. Dilaudid 0.[address] showing 3 rib fractures lateral left, #s 8,9,11 (I would imagine pain from 10th as well, hard to imaging it getting skipped but just not broken). He remains hypoxic at 86-89% on RA, with improvement to 92-94% on NC 2lpm. CT was showing atelectasis on lungs, presume from splinting. No contusion nor PTX. He was given Albuterol neb treatment and incentive spirometry after pain meds. He remained hypoxic on RA still when oxygen turned off briefly. I talked with surgery front desk receptionist. We do have hospitali protocol for 3 rib fractures or more, and he is hypoxic from the pain and atelectasis. will need repeated pain control, incentive spirometry and nebs. On oxygen. Surgery saw pt and admitted him. Disposition: polaced in hospital to surgery service, stable. Diagnoses: accidental fall multiple rib fractures atelectasis hypoxia left chest pain, intractable
[2023-11-15] MEDS: TACROLIMUS 0.5 MG CAPSULE PO SCH (21:49)
[2023-11-16] MEDS: PANTOPRAZOLE 40 MG TABLET PO SCH (06:21)
[2023-11-16] MEDS: ASPIRIN CHEW 81 MG TABLET PO SCH (08:51)
[2023-11-16] MEDS: amLODIPine 5 MG TABLET PO SCH (08:51)
[2023-11-16] MEDS: ENOXAPARIN 40 MG/0.4 ML SYRINGE SUBQ SCH (08:52)
[2023-11-16 16:01] VITALS: BP 148/93
--- NOTE | 2023-11-16 18:57 | PROVIDER PROGRESS NOTE ---
Subjective - General Admit Date: 11/15/23 - Review of Systems General: positive: No symptoms HEENT: positive: No symptoms Pulmonary: positive: Shortness of breath Cardiovascular: positive: No symptoms Gastrointestinal: positive: No symptoms Genitourinary: positive: No symptoms Musculoskeletal: positive: No symptoms Skin: positive: No symptoms Psychiatric: positive: No symptoms - Other Other Information/Narrative: Still requiring 2L NC overnight. Used IV pain meds overnight but motivated to try PO only today. Otherwise CHON/HD normal. Objective - Patient Data Reviewed Vital Signs: Yes Vital Signs: Vital Signs x48h Temp Pulse Resp BP Pulse Ox O2 Flow Rate 11/16/23 15:55 37.2 C 99 16 148/93 H 96 2 11/16/23 13:52 88 L 11/16/23 13:25 89 L 11/16/23 13:18 93 2 11/16/23 12:25 36.3 C L 101 H 18 138/84 H 92 2 Weight: Weight 11/14/23 11/15/23 11/16/23 23:59 23:59 23:59 Weight (kg) 99 kg Intake & Output: Intake and Output Totals x24h 11/14/23 11/15/23 11/16/23 23:59 23:59 23:59 Intake Total 1060 1400 Balance 1060 1400 - Lab Results Lab Results: 11/15/23 09:18 11/15/23 09:18 - Imaging Results Imaging Results Comments: no new imaging - Current Medications Current Medications: Current Medications Generic Name Dose Route Start Last Admin Trade Name Freq PRN Reason Stop Dose Admin Amlodipine Besylate 5 mg 11/16/23 09:00 11/16/23 08:51 Amlodipine 5 Mg Tablet PO 5 mg DAILY OPHELIA Administration Aspirin 81 mg 11/16/23 09:00 11/16/23 08:51 Aspirin Chew 81 Mg Tablet PO 81 mg DAILY OPHELIA Administration Carbidopa/Levodopa 2 tab 11/15/23 17:00 11/16/23 17:03 Carbidopa/Levodopa 25 Mg/100 Mg Tablet PO 2 tab QID OPHELIA Administration Enoxaparin Sodium 40 mg 11/16/23 09:00 11/16/23 08:52 Enoxaparin 40 Mg/0.4 Ml Syringe SUBQ Not Given DAILY OPHELIA Hydromorphone HCl 0.5 mg 11/15/23 11:34 11/16/23 03:16 Hydromorphone 0.5 Mg/0.5 Ml Syringe IVP 0.5 mg Q2H PRN Administration Pain 8 to 10 Ibuprofen 600 mg 11/15/23 11:34 11/15/23 13:01 Ibuprofen 600 Mg Tablet PO 600 mg Q6HR PRN Administration Pain 1 to 4 Metformin HCl 500 mg 11/15/23 17:00 11/16/23 17:03 Metformin 500 Mg Tablet PO 500 mg BIDWM OPHELIA Administration Oxycodone HCl 5 mg 11/15/23 11:34 11/16/23 18:49 Oxycodone 5 Mg Tablet PO 5 mg Q4HR PRN Administration Pain 5 to 7 Pantoprazole Sodium 40 mg 11/16/23 07:00 11/16/23 06:21 Pantoprazole 40 Mg Tablet PO 40 mg QDAC OPHELIA Administration Sodium Chloride 10 ml 11/15/23 17:00 11/16/23 17:03 Sodium Chloride Flush 0.9% 10 Ml Syringe IVP 10 ml 0100,0900,1700 OPHELIA Administration Tacrolimus 0.5 mg 11/15/23 21:00 11/16/23 08:50 Tacrolimus 0.5 Mg Capsule PO 0.5 mg BID OPHELIA Administration - Physical Exam Eyes Bilateral: positive: Normal inspection, PERRL ENT: positive: ENT inspection nml, Pharynx nml Neck: positive: Nml inspection, No JVD Respiratory: negative: Chest non-tender (left chest ttp, improved from yesterday) Cardiovascular: positive: Regular rate & rhythm Abdomen: positive: Non-tender, No organomegaly, Nml bowel sounds, No distention Skin: positive: Color nml, No rash, Warm, Dry Extremities: positive: Non-tender, Full ROM, Nml appearance Neurologic/Psychiatric: positive: Oriented x3, Mood/affect nml ABX Reporting Has patient been on IV antibiotics over the past 48 hours?: No Impression/Plan - Problem List Problem List: Left rib fracture x3, hypoxia, chest wall pain - Able to pull 2L on IS but still requiring 2L NC particularly with ambulation. Left chest wall pain is somewhat improved. - Ambulate TID and continue IS 10x/hr - Continue multimodal pain control with scheduled tylenol, motrin, lidocaine patch, and prn oxycodone/dilaudid Once able to maintain SpO2 without NC and able to tolerate rib pain with PO regimen, will be stable for DC home. Gaby Mendoza DO, FACS General Surgeon
[2023-11-16 19:18] VITALS: O2SAT 93
--- NOTE | 2023-11-16 19:28 | DISCHARGE SUMMARY ---
Discharge Summary Admit Date: 11/15/23 Discharge Date: 11/16/23 Discharging Provider: Gaby Mendoza DO Code Status: Attempt Resuscitation Condition at Discharge: Good Discharge Disposition: 01 Home, Self Care - DIAGNOSES Admission Diagnoses: Rib fracture, left, x3 Hypoxia Left chest wall pain Discharge Diagnoses with Status of Each Condition: Left rib fracture, x3 - unchanged Left chest wall pain - improved Hypoxia - resolved - HOSPITAL COURSE Hospital Course: 68yoM was admitted 4d s/p mechanical fall from standing (without LOC, without headstrike), found to have left rib fractures x3 associated with chest wall pain and hypoxia (SpO2 in high 80s at rest). CT chest ruled out associated pneumothorax, pleural effusion, or pneumonia. He was admitted for supplemental oxygen, multimodal pain control, and respiratory therapy. After 24hrs in the hospital he was tolerating the chest wall pain with oral pain regimen and maintain oxygen saturations in the 90s while ambulating on room air and also at rest following ambulation. He otherwise remained hemodynamically normal, afebrile, and tolerating a regular diet while admitted. He was discharged to home in good condition on HD2. - ALLERGIES Allergies/Adverse Reactions: Allergies Allergy/AdvReac Type Severity Reaction Status Date / Time No Known Drug Allergies Allergy Verified 11/15/23 06:06 - MEDICATIONS Home Medications: Ambulatory Orders Medication Instructions Recorded Confirmed amLODIPine [Norvasc] 10 mg PO DAILY 03/13/20 11/15/23 Alfuzosin HCl [Alfuzosin HCl ER] 10 mg PO DAILY 11/15/23 11/15/23 Atorvastatin [Lipitor] 20 mg PO DAILY 11/15/23 11/15/23 Carbidopa/Levodopa ER 50/200 1 tab PO QID 11/15/23 11/15/23 [Sinemet Cr 50 mg/200 mg] Melatonin 3 mg PO QPM 11/15/23 11/15/23 Omeprazole 20 mg PO BID 11/15/23 11/15/23 Rasagiline [Azilect] 1 mg PO DAILY 11/15/23 11/15/23 Tacrolimus [Prograf] 0.5 mg PO BID 11/15/23 11/15/23 Carbidopa/Levodopa 2 tab PO QID 11/16/23 11/16/23 [Carbidopa-Levodopa 25-100 Tab] oxyCODONE [Roxicodone] 5 mg PO Q4-6H PRN 7 Days #5 tablet 11/16/23 - PHYSICAL EXAM AT DISCHARGE General Appearance: positive: No acute distress, Alert Eyes Bilateral: positive: Normal inspection ENT: positive: ENT inspection nml Respiratory: negative: Chest non-tender (improved left chest wall tenderness) Cardiovascular: positive: Regular rate & rhythm Peripheral Pulses: positive: 2+ Abdomen: positive: Non-tender Back: positive: Nml inspection Skin: positive: Color nml Extremities: positive: Non-tender Neurologic/Psychiatric: positive: Oriented x3 - LABS Result Diagrams: 11/15/23 09:18 11/15/23 09:18 - DIAGNOSTIC IMAGING Diagnostic Imaging Results: Final report reviewed - FOLLOW UP Follow Up: with primary care physician within 2-3 weeks - TIME SPENT Time Spent in Discharge (Minutes): 20
== END 2023-11-16 20:05 | disposition home or self-care (01) ==
LOC: ED 05:53 → MS2 11:34
PROVIDERS: ADMIT Surgery; ATTEND Surgery
DX: R09.02 Hypoxemia (principal); S22.41XD Multiple fractures of ribs, right side, subsequent encounter for fracture with routine healing; W19.XXXD Unspecified fall, subsequent encounter; I10 Essential (primary) hypertension; G20.A1 Parkinson's disease without dyskinesia, without mention of fluctuations; Z79.82 Long term (current) use of aspirin; Z79.899 Other long term (current) drug therapy
CPT/HCPCS: 36415; 71250; 80053; 83690; 85025; 94640; 96372; 96374; 96375; 96376; 99285; A9270; G0378; J1170

== ENCOUNTER 2024-02-28 09:49 | Outpatient (CLI) | payer OTHER | END 2024-02-28 23:59 | disposition critical access hospital (66) | LOC: EMS 09:49 | DX: R47.01 Aphasia (principal); R41.89 Other symptoms and signs involving cognitive functions and awareness; H53.8 Other visual disturbances; R53.1 Weakness | CPT/HCPCS: A0425; A0429 ==

== ENCOUNTER 2024-02-28 09:54 | Emergency (ER) | payer OTHER ==
[2024-02-28 10:03] LABS: BASOPHILS # (AUTO) 0.1 10^3/uL (0.0-0.1); BASOPHILS % (AUTO) 0.6 %; EOSINOPHILS # (AUTO) 0.3 10^3/uL (0.0-0.7); EOSINOPHILS % (AUTO) 3.4 %; HCT - HEMATOCRIT 43.8 % (42.0-52.0); LYMPHOCYTES # (AUTO) 1.7 10^3/uL (1.5-3.5); LYMPHOCYTES % (AUTO) 21.3 %; MEAN CORPUSCULAR HEMOGLOBIN 29.4 pg (27.0-31.0); MEAN CORPUSCULAR HGB CONC 34.2 g/dL (32.0-36.0); MEAN CORPUSCULAR VOLUME 85.7 fL (80.0-94.0); MEAN PLATELET VOLUME 9.5 fL (7.4-11.4); MONOCYTES # (AUTO) 0.3 10^3/uL (0.0-1.0); MONOCYTES % (AUTO) 4.2 %; NEUTROPHILS # (AUTO) 5.5 10^3/uL (1.5-6.6); NEUTROPHILS % (AUTO) 70.2 %; PLT - PLATELET COUNT 194 10^3/uL (130-450); RED BLOOD COUNT 5.11 10^6/uL (4.70-6.10); RED CELL DISTRIBUTION WIDTH 13.4 % (12.0-15.0); WHITE BLOOD COUNT 7.9 x10^3/uL (4.8-10.8)
[2024-02-28 10:13] LABS: ALBUMIN 4.5 g/dL (3.2-5.5); ALBUMIN/GLOBULIN RATIO 1.6 (1.0-2.2); BILIRUBIN,TOTAL 0.9 mg/dL (0.2-1.0); CALCIUM 9.9 mg/dL (8.5-10.3); CREATININE 0.9 mg/dL (0.6-1.3); MAGNESIUM 1.5 mg/dL (1.7-2.3); TOTAL PROTEIN 7.4 g/dL (6.4-8.9)
--- NOTE | 2024-02-28 10:18 | CT Report ---
PROCEDURE: Head W/O Stroke Protocol INDICATIONS: aphasia TECHNIQUE: Noncontrast 4.5 mm thick angled axial sections acquired from the foramen magnum to the vertex, with c oronal reformats. For radiation dose reduction, the following was used: automated exposure control, adjustment of mA and/or kV according to patient size. COMPARISON: CT head 07/28/2023. FINDINGS: Image quality: Excellent. The ventricular system and cortical sulci demonstrate atrophy, consistent for patient's stated age. There are areas of hypodensity in the periventricular and subcortical white matter. There is no acut e intra or extra-axial fluid collection. No acute hemorrhage, mass lesion or midline shift. Brainst em is unremarkable. Globes are symmetrical. Sinuses are aerated. Osseous structures are intact. IMPRESSION: 1. No acute intracranial process. 2. Mild atrophy and chronic microvascular ischemic changes. The above findings were discussed with Dr. Brian Javier on 02/28/2024 at 10:16 AM This study fulfills neurological imaging criteria for inclusion or exclusion of acute stroke therapie s based on available published neurological imaging guidelines. Reviewed by: Tamika Mina MD on 02/28/2024 10:17 AM PDT Approved by: Tamika Mina MD on 02/28/2024 10:17 AM PDT Station ID: [id number]
--- NOTE | 2024-02-28 10:31 | ED Physician Documentation ---
PD HPI ALTERED MENTAL STATUS - Stated complaint Stated Complaint: CODE STROKE - Chief complaint Chief Complaint: Neuro - History obtained from History obtained from: Patient, Family, EMS - History of Present Illness Timing - onset: Enter time (0800), Today Timing - duration: Hours Timing - details: Gradual onset, Still present, Waxing and waning Quality / character: Other (difficulty talking) Associated symptoms: General weakness. No: Fever, Headache, Stiff neck, Dyspnea, Cough, NVD, Urinary sx, Focal weakness, Seizure activity, Syncope Contributing factors: New medication, Other (has hx of parkinsons). No: Anticoagulated Basline status: Alert and oriented X 3, Ambulatory, Independent Similar symptoms before: Has not had sx before Recently seen: Clinic - Additional information Additional information: Pedro Liu is a 69-year-old male who has had a liver transplant for hepatitis C and he has a history of Parkinson's disease. He felt fatigued yesterday and this morning after talking to his neurologist he developed difficulty speaking and thinking clearly. He was attended to by his . Review of Systems Constitutional: denies: Fever Eyes: denies: Decreased vision Ears: denies: Ear pain Nose: denies: Congestion Throat: denies: Sore throat Cardiac: denies: Chest pain / pressure, Palpitations Respiratory: denies: Dyspnea, Cough GI: denies: Abdominal Pain, Nausea, Vomiting : denies: Dysuria, Frequency Skin: denies: Rash Musculoskeletal: denies: Neck pain, Back pain, Extremity pain Neurologic: reports: Generalized weakness, Difficulty speaking, Altered mental status. denies: Focal weakness, Numbness, Headache, Head injury, LOC PD PAST MEDICAL HISTORY - Past Medical History Cardiovascular: Hypertension Respiratory: None Neuro: Parkinson's Endocrine/Autoimmune: None GI: None : Benign prostate hypertrophy HEENT: None Psych: None Musculoskeletal: None Derm: None - Past Surgical History Past Surgical History: Yes General: Other - Present Medications Home Medications: Ambulatory Orders Medication Instructions Recorded Confirmed Atorvastatin [Lipitor] 20 mg PO DAILY 11/15/23 01/09/24 Carbidopa/Levodopa ER 50/200 1 tab PO QID 11/15/23 01/09/24 [Sinemet Cr 50 mg/200 mg] Melatonin 3 mg PO QPM 11/15/23 01/09/24 Omeprazole 20 mg PO BID 11/15/23 01/09/24 Rasagiline [Azilect] 1 mg PO DAILY 11/15/23 01/09/24 Tacrolimus [Prograf] 0.5 mg PO BID 11/15/23 01/09/24 Carbidopa/Levodopa 2 tab PO QID 11/16/23 01/09/24 [Carbidopa-Levodopa 25-100 Tab] oxyCODONE [Roxicodone] 5 mg PO Q6H PRN #18 tablet 01/09/24 - Allergies Allergies/Adverse Reactions: Allergies Allergy/AdvReac Type Severity Reaction Status Date / Time No Known Drug Allergies Allergy Verified 02/28/24 10:14 - Social History Does the pt smoke?: No Smoking Status: Never smoker Does the pt drink ETOH?: No Does the pt have substance abuse?: No - Immunizations Immunizations are current?: Yes PD ED PE NORMAL - Vitals Vital signs reviewed: Yes (tachy and hypertensive ) - General General: Alert and oriented X 3, No acute distress, Well developed/nourished, Other (The patient has 1 to 2 seconds of speech latency and 1 to 2 seconds of delay in execution of motor commands polite arrival to the emergency department he has no focal neural deficit.) - HEENT HEENT: Atraumatic, PERRL, EOMI - Neck Neck: Supple, no meningeal sign, No bony TTP - Cardiac Cardiac: RRR, No murmur - Respiratory Respiratory: No respiratory distress, Clear bilaterally - Abdomen Abdomen: Normal bowel sounds, Soft, Non tender, Non distended, No organomegaly - Back Back: No CVA TTP, No spinal TTP - Derm Derm: Normal color, Warm and dry, No rash - Extremities Extremities: No deformity, No edema - Neuro Neuro: Alert and oriented X 3, transport conductor 2-12 intact, No motor deficit, No sensory deficit, Normal speech Eye Opening: Spontaneous Motor: Obeys Commands Verbal: Oriented GCS Score: 15 - Psych Psych: Normal mood, Normal affect Results - Vitals Vitals: Vital Signs - 24 hr 02/28/24 02/28/24 02/28/24 10:15 11:36 13:00 Temperature 36.5 C Heart Rate 107 H 86 85 Respiratory 16 18 16 Rate Blood Pressure 132/88 H 124/88 H 129/100 H O2 Saturation 95 99 96 02/28/24 02/28/24 02/28/24 14:00 15:00 16:00 Temperature Heart Rate 87 88 86 Respiratory 16 17 17 Rate Blood Pressure 125/94 H 119/101 H 120/86 H O2 Saturation 95 97 96 02/28/24 16:21 Temperature 36.2 C L Heart Rate Respiratory Rate Blood Pressure O2 Saturation Oxygen O2 Source Room air - EKG (time done) 1037 EKG releavant findings:: EKG personally interpreted by author of this note. Relevant findings are: Rate: Rate (enter#) (101) Rhythm: Sinus tachycardia Intervals: Prolonged QT (borderline) Compare to prior EKG: Changed from prior EKG (SPT 01-09-24 rate has increased) Computer interpretation: Agree with computer - Labs Labs: Laboratory Tests 02/28/24 02/28/24 09:56 09:56 WBC 7.9 RBC 5.11 Hgb 15.0 Hct 43.8 MCV 85.7 MCH 29.4 MCHC 34.2 RDW 13.4 Plt Count 194 MPV 9.5 Neut # (Auto) 5.5 Lymph # (Auto) 1.7 [place]anan # (Auto) 0.3 Eos # (Auto) 0.3 Baso # (Auto) 0.1 Absolute Nucleated RBC 0.00 Nucleated RBC % 0.0 Sodium 139 Potassium 4.0 Chloride 102 Carbon Dioxide 30 Anion Gap 7.0 BUN 14 Creatinine 0.9 Estimated GFR (MDRD) 84 L Glucose 183 H Calcium 9.9 Magnesium 1.5 L Total Bilirubin 0.9 AST 18 ALT 4 L Alkaline Phosphatase 116 Total Protein 7.4 Albumin 4.5 Globulin 2.9 Albumin/Globulin Ratio 1.6 Lipase 15 - Rads (name of study) CT angio head and neck Relevant Findings:: Prelim report reviewed (Impression: No significant intracranial arterial abnormality is seen. Markedly diminutive lumen of the left vertebral artery with areas of occlusion. However, the outer diameter of the left vertebral artery may be normal in size. This raises the question of possible dissection of the left vertebr) MRA head/neck Relevant Findings:: Prelim report reviewed (Impression: As seen on the other studies, the left vertebral artery is diffusely diminutive with long segment occlusions. The right vertebral artery is dominant giving rise to a widely patent basilar artery. There is no significant intracranial stenotic or occlusive disease noted.), EMP independent interpretation of test, See rad report MRI head Relevant Findings:: Prelim report reviewed (Impression: No findings of acute or subacute infarction are seen.), EMP independent interpretation of test, See rad report Procedures - IVC sono (time) 1020 Bedside IVC sono: IVC measures (cm) (0.7), IVC collapsed c insp (cm) (complete), Dehydration (est 3 liter deficit) PD Medical Decision Making - ED course Complexity details: reviewed results, re-evaluated patient, considered differential, d/w patient, d/w family, d/w independent beauty consultant Reviewed Lab Results: Impression: No significant intracranial arterial abnormality is seen. Markedly diminutive lumen of the left vertebral artery with areas of occlusion. However, the outer diameter of the left vertebral artery may be normal in size. This raises the question of possible dissection of the left vertebral artery. No significant carotid stenosis. Consider dissection protocol MRI angiography of the neck as part of the stroke protocol MRI. We reviewed a complete blood count showing a normal white blood cell count normal hemoglobin hematocrit and platelets and normal indices chemistries were equally boring with a normal electrolyte normal kidney and liver function magnesium was low at 1.5 glucose was elevated at 184.I considered these laboratory test to indicate a relatively benign process and the level of dehydration the patient is exhibiting is consistent with these results including hypomagnesemia. ED course: 69-year-old Pedro Liu presents to the emergency department with an acute difficulty with speaking and ability to form words. He did not have a focal neurologic deficit. On initial evaluation he was found to be significantly volume depleted and I be saline was begun. His symptoms resolved. The patient has a history of Parkinson's and we proceeded with angios of the head and neck which were concerning for the possibility of a vertebral artery dissection on the left and an MRA of the brain and neck were performed. This demonstrated an occluded vessel and the stroke doctor Dr. Mukherjee was consulted and the case. She recommended the MR of the brain for evaluation of stroke and if stroke is not present the patient likely has his symptoms related to his volume depletion. She recommends admission of the patient to the hospital if stroke is present on the MRI of the brain. The MRA of the brain was able to determine that there was not a dissection but occlusion of the vessel. The MRI of the brain does not demonstrate evidence of acute or subacute stroke. The patient is discharged to home. Departure - Departure Disposition: 01 Home, Self Care Clinical Impression: Dehydration, Transient ischemic attack Condition: Stable Instructions: ED Dehydration, ED Transient Ischemic Attack Follow-Up: PEDRO VILLALOBOS MD [Primary Care Provider] - Comments: Pedro, today it looks like the presentation you had with difficulty speaking and concentrating was related to significant volume depletion. We looked at the vessels supplying the head and neck and found there was a vessel that is occluded and this is likely been occluded for some time. Volume depletion will magnify the effects of this occlusion. My recommendation is to not get dehydrated especially to the extent you were today. The recommendation is to follow-up with your neurologist as previously planned. Forms: PCP List
[2024-02-28] MEDS: MAGNESIUM SULFATE 2 GRAM 2 GM/50 ML BAG IV ONE (10:32)
[2024-02-28] MEDS: SODIUM CHLORIDE 0.9% 1,000 ML IV STA ×2 (10:32→14:13)
--- NOTE | 2024-02-28 10:49 | CT Report ---
PROCEDURE: Angio Head/Neck INDICATIONS: aphasia TECHNIQUE: After the administration of intravenous contrast, 1 mm thick sections acquired from the aortic arch t hrough the [place]. 3-dimensional [id number]-qduewtxuwz (MIP) and/or volume renderin g reformats were acquired of the central intracranial vasculature and neck separately. For radiation dose reduction, the following was used: automated exposure control, adjustment of mA and/or kV acco rding to patient size. CONTRAST: 80ml omni 300 COMPARISON: CT head from the same date. FINDINGS: Image quality: Diagnostic. HEAD CT: CSF Spaces: Basal cisterns are patent. No extra-axial fluid collections. Ventricles are normal in size and shape. Brain: No significant abnormality is seen for scanning technique. Skull and face: Calvarium and visualized facial bones appear intact, without suspicious lesions. Sinuses: Visualized sinuses and mastoids are clear. HEAD CT ANGIOGRAPHY: Anterior circulation: Intracranial internal carotid arteries are normal in size and flow. The flow within the paired anterior cerebral arteries is normal and symmetric. The flow within the middle cer ebral arteries is normal and symmetric. The anterior communicating artery is seen. No aneurysms are seen. Posterior circulation: Quite diminutive distal left vertebral artery. Right vertebral artery is domin ant and widely patent. They join to give rise to a normal caliber basilar artery. Flow within the pos terior cerebral arteries is normal and symmetric. Incidental note made of origin of the left po sterior cerebral artery off of the anterior circulation. No aneurysms are seen. NECK CT ANGIOGRAPHY: Carotid system: The great vessels demonstrate a bovine arch anatomy as they arise from the aortic ar ch. The origins of the common carotid arteries appear patent. The common carotid arteries demonstra te normal caliber and courses. The bifurcation regions are both widely patent. The internal carotid arteries demonstrate normal calibers and courses. Posterior circulation: Markedly diminutive left vertebral artery lumen. The vertebral arteries interm ittently nonpatent. There is a suggestion of a possible dissection in that the diameter of the left v ertebral artery external carvalho appears to perhaps be normal. The distal left vertebral artery is carmen nt. The right vertebral artery is widely patent and is dominant. They join to form a normal appearing basilar artery. Soft tissues: Visualized neck soft tissues demonstrate no suspicious abnormalities. Bones: No suspicious bony lesions. Visualized cervical spine appears normally aligned. IMPRESSION: No significant intracranial arterial abnormality is seen. Markedly diminutive lumen of the left vertebral artery with areas of occlusion. However, the outer di ameter of the left vertebral artery may be normal in size. This raises the question of possible disse ction of the left vertebral artery. No significant carotid stenosis. Consider dissection protocol MRI angiography of the neck as part of a stroke protocol MRI. Above discussed with Brian Javier MD at the time of dictation. The estimate of stenosis included in the report of the imaging study was calculated using the NASCET method Reviewed by: Gallito Marie MD on 02/28/2024 10:47 AM PDT Approved by: Gallito Marie MD on 02/28/2024 10:47 AM PDT Station ID: [id number]
[2024-02-28] MEDS ORDERED: GADOTERATE MEGLUMINE 10 MMOL/20 ML VIAL ONE (11:48)
[2024-02-28] MEDS: GADOTERATE MEGLUMINE 10 MMOL/20 ML VIAL IVP ONE (13:15)
--- NOTE | 2024-02-28 13:27 | MRI Report ---
PROCEDURE: Angio Neck W/WO INDICATIONS: stroke protocol head and neck ? verterbral discect CONTRAST: CLARISCAN 19 ML TECHNIQUE: Axial and sagittal balanced GE through the neck. Coronal dynamic MRA after the administration of con trast in the arterial and venous phases, with rotating 3-dimensional maximum intensity projection (MT P) reformats constructed from subtraction images. COMPARISON: CT head and CT angiogram of the head and neck dated 02/28/2024. FINDINGS: Image quality: Excellent. Carotid system: Great vessels demonstrate a conventional anatomy as they arise from the aortic arch. The origins of the common carotid arteries appear normal. The calibers and courses of the common c arotid arteries are likewise normal. The carotid bifurcations appear normal bilaterally. The planner internship al carotid arteries are widely patent up to the [place] of [place]. Posterior circulation: There is no evidence of a left vertebral artery dissection. The left vertebral artery is occluded over much of its course. The distal left vertebral artery is patent and joins a n ormal caliber right vertebral artery to form a normal caliber basilar artery. The right vertebral art josep is dominant and patent. Miscellaneous: Subclavian arteries are patent throughout. Pre-contrast images through the neck demo nstrate no soft tissue abnormalities. IMPRESSION: 1. There is no evidence of acute dissection of the left vertebral artery. Left vertebral artery is di ffusely diminutive and largely occluded. 2. A normal caliber right vertebral artery is joined by a diminutive distal left vertebral artery. Th ey form a widely patent basilar artery. Flow within the distal vertebral artery on the left may be re trograde. 3. No significant carotid stenotic disease. Reviewed by: Gallito Marie MD on 02/28/2024 1:26 PM PDT Approved by: Gallito Marie MD on 02/28/2024 1:26 PM PDT Station ID: [id number]
--- NOTE | 2024-02-28 13:30 | MRI Report ---
PROCEDURE: Angio Head WO INDICATIONS: STROKE TECHNIQUE: Noncontrast axial 3-D [id number] MR angiogram, with 3-dimensional maximum intensity projection (M IP) reformats of the internal carotid arteries and posterior circulation then performed. COMPARISON: CTA head and neck from the same date, MR angiogram of the neck from the same date. FINDINGS: Image quality: Diagnostic. Anterior circulation: Intracranial internal carotid arteries demonstrate normal size and intralumina l flow signal. The flow within the paired anterior cerebral arteries is normal and symmetric. The f low within the middle cerebral arteries is normal and symmetric. The anterior communicating artery i s seen. No stenoses, occlusions, or aneurysms. Posterior circulation: As is seen on the CTA and MRA of the neck, the left vertebral artery is diffus luz elena diminutive and largely occluded. The right vertebral artery is dominant and widely patent giving rise to a normal caliber basilar artery. The flow within the posterior cerebral arteries is normal an d symmetric. No stenoses, occlusions, or aneurysms. IMPRESSION: As is seen on the other studies, the left vertebral artery is diffusely diminutive with long segment occlusions. The right vertebral artery is dominant giving rise to a widely patent basilar artery. The re is no significant intracranial stenotic or occlusive disease noted. Reviewed by: Gallito Marie MD on 02/28/2024 1:29 PM PDT Approved by: Gallito Marie MD on 02/28/2024 1:29 PM PDT Station ID: [id number]
[2024-02-28] MEDS: CARBIDOPA/LEVODOPA ER 50 MG/200 MG TABLET PO STA (14:12)
[2024-02-28] MEDS: KETOROLAC 30 MG/ML VIAL IVP STA (16:03)
[2024-02-28] MEDS: ONDANSETRON 4 MG/2 ML VIAL IVP STA (17:01)
[2024-02-28] MEDS: HYDROmorphone 1 MG/ML CARPUJECT IVP STA (17:01)
[2024-02-28] MEDS: iohexoL-300 100 ML VIAL IVP ONE (18:05)
--- NOTE | 2024-02-28 19:07 | MRI Report ---
PROCEDURE: Brain WO INDICATIONS: ? stroke TECHNIQUE: Noncontrast axial T1 spin echo, axial T2 fast spin echo, sagittal and axial FLAIR, coronal T2 fast sp in echo, axial gradient echo, axial diffusion and ADC through the brain. COMPARISON: Correlation is made with the accompanying imaging. FINDINGS: Image quality: Motion artifact is noted. CSF Spaces: Basal cisterns are patent. No extra-axial fluid collections. Ventricles are normal in size and shape. Brain: No intracranial masses or hemorrhage. [place]/white matter interface is normal. Brainstem appe ars normal. Diffusion-weighted images demonstrate no acute ischemic insult. No chronic ischemic ins ults. Normal intravascular flow voids are present. Age-appropriate brain parenchymal volume loss an d chronic small vessel ischemic change can be seen. Skull and face: Calvarium has normal marrow signal. Orbits appear normal. Sinuses: Sinuses and mastoids are clear. IMPRESSION: No findings of acute or subacute infarction are seen. Reviewed by: Gutierrez Yanez MD on 02/28/2024 6:06 PM PAPO Approved by: Gutierrez Yanez MD on 02/28/2024 6:06 PM AKILENE Station ID: [id number]
[2024-02-28 19:52] VITALS: BP 163/105; O2SAT 98
== END 2024-02-28 19:59 | disposition home or self-care (01) ==
LOC: ED 09:54
DX: G45.9 Transient cerebral ischemic attack, unspecified (principal); E86.0 Dehydration; G20.A1 Parkinson's disease without dyskinesia, without mention of fluctuations; Z94.4 Liver transplant status; N40.0 Benign prostatic hyperplasia without lower urinary tract symptoms; I10 Essential (primary) hypertension; Z79.899 Other long term (current) drug therapy
CPT/HCPCS: 36415; 70450; 70496; 70498; 70544; 70549; 70551; 80053; 83690; 83735; 85025; 93005; 96361; 96365; 96375; 99284; A9270; A9575; J1170; Q9967

== ENCOUNTER 2024-03-06 18:22 | Emergency (ER) | payer OTHER ==
--- NOTE | 2024-03-06 18:50 | ED Physician Documentation ---
History of Present Illness - Stated complaint Stated Complaint: FALL/ LT WRIST INJ - Chief complaint Chief Complaint: Trauma Ext - History obtained from History obtained from: Patient, Family - Additonal information Additional information: Had a trip and fall landing on outstretched left wrist with severe wrist pain. Also some elbow pain on that side. Skin is right knee but that does not hurt and he is walking okay. Here with . History of Parkinson's. PD PAST MEDICAL HISTORY - Past Medical History Past Medical History: Yes Cardiovascular: Hypertension Respiratory: None Neuro: Parkinson's Endocrine/Autoimmune: None GI: None : Benign prostate hypertrophy HEENT: None Psych: None Musculoskeletal: None Derm: None - Past Surgical History Past Surgical History: Yes General: Other - Present Medications Home Medications: Ambulatory Orders Medication Instructions Recorded Confirmed Atorvastatin [Lipitor] 20 mg PO DAILY 11/15/23 01/09/24 Carbidopa/Levodopa ER 50/200 1 tab PO QID 11/15/23 01/09/24 [Sinemet Cr 50 mg/200 mg] Melatonin 3 mg PO QPM 11/15/23 01/09/24 Omeprazole 20 mg PO BID 11/15/23 01/09/24 Rasagiline [Azilect] 1 mg PO DAILY 11/15/23 01/09/24 Tacrolimus [Prograf] 0.5 mg PO BID 11/15/23 01/09/24 Carbidopa/Levodopa 2 tab PO QID 11/16/23 01/09/24 [Carbidopa-Levodopa 25-100 Tab] oxyCODONE [Roxicodone] 5 mg PO Q6H PRN #18 tablet 01/09/24 Oxycodone HCl/Acetaminophen 1 - 2 each PO Q6H PRN #14 tablet 03/06/24 [Percocet 5-325 mg Tablet] - Allergies Allergies/Adverse Reactions: Allergies Allergy/AdvReac Type Severity Reaction Status Date / Time No Known Drug Allergies Allergy Verified 02/28/24 10:14 - Social History Does the pt smoke?: No Smoking Status: Never smoker Does the pt drink ETOH?: No Does the pt have substance abuse?: No - Immunizations Immunizations are current?: Yes PD ED PE NORMAL - Vitals Vital signs reviewed: Yes - General General: Alert and oriented X 3, No acute distress - Neck Neck: Supple, no meningeal sign, No bony TTP - Back Back: No CVA TTP, No spinal TTP - Derm Derm: Normal color, Warm and dry - Extremities Extremities: Other (Mild tenderness and abrasion to the left elbow but with relatively full range of motion. There is a deformity of the left wrist consistent with fracture with normal neurovascular function in the left hand. Shallow abrasion over the right knee without tenderness.) - Neuro Neuro: Alert and oriented X 3, Normal speech Results - Vitals Vitals: Vital Signs - 24 hr 03/06/24 03/06/24 18:30 21:00 Temperature 36 C L Heart Rate 97 94 Respiratory 16 16 Rate Blood Pressure 116/79 118/62 O2 Saturation 96 98 Oxygen O2 Source Room air - Rads (name of study) Left elbow and left wrist x-ray demonstrates a fracture of the wrist with negative elbow. Relevant Findings:: Final report received, EMP independent interpretation of test Procedures - Splint (location) - Minor Left wrist Splint applied by: Nurse Type of splint: Fiberglass, Short arm, Sugar tong Other: Patient tolerated well, No complications, Neurovascular intact, Sling provided PD Medical Decision Making - ED course ED course: He had a fall with an obvious wrist fracture on exam. It does not look like it needs reduction on the x-ray. He was treated with 2 divided doses of intramuscular hydromorphone with improvement in his pain and received four percocet to go. He was splinted and in a sling and advised on orthopedic follow-up. Departure - Departure Disposition: 01 Home, Self Care Clinical Impression: Wrist fracture, left, Elbow injury Condition: Good Record reviewed to determine appropriate education?: Yes Instructions: ED Fx Colles Wrist No Redu Requ Follow-Up: Orthopedic Care [Provider Group] Prescriptions: Oxycodone HCl/Acetaminophen [Percocet 5-325 mg Tablet] 1 - 2 each PO Q6H PRN #14 tablet PRN Reason: pain Comments: I sent your prescription electronically to the [email or web address] in [place]. You have a broken wrist but I do not think it needs reduction but she should follow-up with orthopedic surgeons in about a week. The x-ray of your left elbow was negative. Call the orthopedics office on Saturday for an appointment in about a week. Return for new or worsening symptoms. I am prescribing a short course of narcotic pain medication for you. These are potentially dangerous and addictive medications that should be used carefully. These medications may constipate you. Take an gsmx-nqd-tpgphax stool softener (docusate) twice daily with plenty of water while taking these medications. If you go 24 hours without a bowel movement, take vknp-zpv-qdvkgnd miralax, per package instructions. Do not drink or drive while taking these medications. If you received narcotic or sedating medications while in the emergency department, do not drive for 24 hours. Store this medication in a safe, secure place and out of reach of children. It is a violation of federal law to give or sell this medication to another person or to use in a manner other than prescribed. The ED will not refill narcotic prescriptions, including prescriptions lost or stolen. To dispose of unwanted medications: 1. [facility] provides a drop box for medication in pill form only (no liquids) 8:00 am to 4:30 p.m. Saturday-Saturday in the lobby of the [facility], [address] [place] [address]. Empty pills into ziplock bag before disposal. Call [phone] for information. 2.[employer] is a free service available to all [facility] residents. Go to [email or web address] Note that many narcotic pain relievers also contain Tylenol/acetaminophen. Please ensure that your total dose of acetaminophen from all sources does not exceed 3 g (3000 mg) per day. Forms: PCP List Discharge Date/Time: 03/06/24 21:00
[2024-03-06] MEDS: HYDROmorphone 1 MG/ML CARPUJECT IM STA ×2 (19:23→20:51)
--- NOTE | 2024-03-06 19:26 | XRAY Report ---
PROCEDURE: Elbow 3+V LT INDICATIONS: elbow TECHNIQUE: 3 views of the elbow were acquired. COMPARISON: None. FINDINGS: Bones: No acute fractures or dislocations. No suspicious bony lesions. Tiny posterior olecranon e nthesophyte. Soft tissues: No effusion. No suspicious soft tissue calcifications. IMPRESSION: No acute bony abnormality or significant joint effusion. If there is clinical concern or persistent s ymptoms, additional imaging such as repeat radiographs or advanced imaging (e.g. CT, MRI) may be help ful for further evaluation. Reviewed by: Ed Singh MD on 03/06/2024 7:25 PM PDT Approved by: Ed Singh MD on 03/06/2024 7:25 PM PDT Station ID: [id number]
--- NOTE | 2024-03-06 19:28 | XRAY Report ---
PROCEDURE: Wrist 3+V LT INDICATIONS: trauma, GLF TECHNIQUE: 4 views of the wrist were acquired. COMPARISON: None. FINDINGS: Bones: No the fractures or dislocations. No suspicious bony lesions. Comminuted mildly displaced articular fracture of the distal radius. Minimally displaced ulnar styloid fracture. Soft tissues: Soft tissue attenuation is seen surrounding the wrist. IMPRESSION: 1.Comminuted mildly displace intra-articular fracture of the distal radius. 2.Nondisplaced fracture of the ulnar styloid. Reviewed by: Ed Singh MD on 03/06/2024 7:27 PM PDT Approved by: Ed Singh MD on 03/06/2024 7:27 PM PDT Station ID: [id number]
[2024-03-06] MEDS: oxyCODONE/ACET 5/325 Prepack 4 PO STA (20:35)
[2024-03-06 21:07] VITALS: BP 118/62; O2SAT 98
== END 2024-03-06 21:00 | disposition home or self-care (01) ==
LOC: ED 18:22
DX: S52.532A Colles' fracture of left radius, initial encounter for closed fracture (principal); S50.312A Abrasion of left elbow, initial encounter; W01.0XXA Fall on same level from slipping, tripping and stumbling without subsequent striking against object, initial encounter; G20.A1 Parkinson's disease without dyskinesia, without mention of fluctuations; I10 Essential (primary) hypertension; N40.0 Benign prostatic hyperplasia without lower urinary tract symptoms; Z79.899 Other long term (current) drug therapy
CPT/HCPCS: 29125; 73080; 73110; 96372; 99283; J1170

== ENCOUNTER 2024-03-07 05:56 | Outpatient (CLI) | payer OTHER | END 2024-03-07 23:59 | disposition critical access hospital (66) | LOC: EMS 05:56 | DX: R45.1 Restlessness and agitation (principal); R47.81 Slurred speech; I10 Essential (primary) hypertension; R26.81 Unsteadiness on feet | CPT/HCPCS: A0425; A0429 ==

== ENCOUNTER 2024-03-07 06:13 | Emergency (ER) | payer OTHER ==
--- NOTE | 2024-03-07 06:18 | ED Physician Documentation ---
PD HPI ALTERED MENTAL STATUS - Stated complaint Stated Complaint: POSS STROKE - History obtained from History obtained from: Patient, Family () - History of Present Illness Timing - onset: Last night (The states the patient seemed agitated about midnight and then awoke at 3 with trouble speaking and and the content was incoherent. No obvious focal weakness. Awoke this morning and still had some symptoms. Which have improved en route.) Timing - details: Gradual onset, Now resolved (much improving enroute and talkative plainly on arrival.) Quality / character: Other (trouble speaking clearly and was agitated, anxious.) Associated symptoms: No: Fever, Headache Contributing factors: Anticoagulated. No: Diabetic Basline status: Alert and oriented X 3, Walker Similar symptoms before: No diagnosis (similar a week ago and had CT/ CT-A and then MRI/MRA. left vetebral artery nonpatent on prior. Right good. Carotids normal. Upper circulation posteriorly normal.) Review of Systems Constitutional: denies: Fever Neurologic: reports: Difficulty speaking. denies: Focal weakness, Numbness, Headache PD PAST MEDICAL HISTORY - Past Medical History Cardiovascular: Hypertension Respiratory: None Neuro: Parkinson's Endocrine/Autoimmune: None GI: None : Benign prostate hypertrophy HEENT: None Psych: None Musculoskeletal: None Derm: None - Past Surgical History Past Surgical History: Yes General: Other - Present Medications Home Medications: Ambulatory Orders Medication Instructions Recorded Confirmed Atorvastatin [Lipitor] 20 mg PO DAILY 11/15/23 01/09/24 Carbidopa/Levodopa ER 50/200 1 tab PO QID 11/15/23 01/09/24 [Sinemet Cr 50 mg/200 mg] Melatonin 3 mg PO QPM 11/15/23 01/09/24 Omeprazole 20 mg PO BID 11/15/23 01/09/24 Rasagiline [Azilect] 1 mg PO DAILY 11/15/23 01/09/24 Tacrolimus [Prograf] 0.5 mg PO BID 11/15/23 01/09/24 Carbidopa/Levodopa 2 tab PO QID 11/16/23 01/09/24 [Carbidopa-Levodopa 25-100 Tab] oxyCODONE [Roxicodone] 5 mg PO Q6H PRN #18 tablet 01/09/24 Oxycodone HCl/Acetaminophen 1 - 2 each PO Q6H PRN #14 tablet 03/06/24 [Percocet 5-325 mg Tablet] - Allergies Allergies/Adverse Reactions: Allergies Allergy/AdvReac Type Severity Reaction Status Date / Time No Known Drug Allergies Allergy Verified 03/07/24 06:17 - Social History Does the pt smoke?: No Smoking Status: Never smoker Does the pt drink ETOH?: No Does the pt have substance abuse?: No - Immunizations Immunizations are current?: Yes PD ED PE NORMAL - Vitals Vital signs reviewed: Yes - General General: Alert and oriented X 3, Well developed/nourished - HEENT HEENT: Atraumatic - Neck Neck: Supple, no meningeal sign, No adenopathy - Cardiac Cardiac: RRR, No murmur - Respiratory Respiratory: Clear bilaterally - Derm Derm: Normal color, Warm and dry - Extremities Extremities: Other (Normal movement of the extremities. He does have a splint on the left wrist which appears in place.) - Neuro Neuro: No motor deficit, No sensory deficit, Normal speech Eye Opening: Spontaneous Motor: Obeys Commands Verbal: Oriented GCS Score: 15 Results - Vitals Vitals: Vital Signs - 24 hr 03/07/24 03/07/24 03/07/24 06:17 06:53 08:23 Temperature 36.7 C Heart Rate 114 H 113 H 93 Respiratory 18 18 15 Rate Blood Pressure 157/123 H 201/104 H 151/101 H O2 Saturation 97 99 94 Oxygen O2 Source Room air - EKG (time done) 06:37 EKG releavant findings:: EKG personally interpreted by author of this note. Relevant findings are: Rate: Rate (enter#) (113) Rhythm: Sinus tachycardia [place]: Normal Intervals: Normal AR QRS: Normal Ischemia: Normal ST segments. No: ST elevation c/w ischemia, ST depression - Labs Labs: Laboratory Tests 03/07/24 03/07/24 03/07/24 06:30 06:30 06:30 WBC 9.1 RBC 4.47 L Hgb 12.9 L Hct 38.3 L MCV 85.7 MCH 28.9 MCHC 33.7 RDW 13.4 Plt Count 189 MPV 9.4 Neut # (Auto) 7.6 H Lymph # (Auto) 0.9 L [place]in # (Auto) 0.5 Eos # (Auto) 0.1 Baso # (Auto) 0.0 Absolute Nucleated RBC 0.00 Nucleated RBC % 0.0 Sodium 130 L Potassium 4.2 Chloride 94 L Carbon Dioxide 30 Anion Gap 6.0 BUN 17 Creatinine 0.9 Estimated GFR (MDRD) 84 L Glucose 199 H POC Whole Bld Glucose 172 H Calcium 9.2 Magnesium 1.2 L Total Bilirubin 1.2 H AST 247 H ALT 73 H Alkaline Phosphatase 147 H Total Protein 6.3 L Albumin 3.9 Globulin 2.4 Albumin/Globulin Ratio 1.6 Lipase 151 H - Rads (name of study) head CT Relevant Findings:: Prelim report reviewed (no acuute findings. ) PD Medical Decision Making - ED course Complexity details: considered differential, d/w patient, d/w family ED course: The patient was brought in by EMS with call for the medics by his with report of aphasia expressively. The patient was here yesterday with a fall and a wrist injury which was fractured and splinted. He was given some pain medicine. His states he took a dose of the [place] approximate 11:30 PM. He has had this before with prior injuries and had not had any altered mentation. The noticed him starting to be agitated around midnight but then was able to go to sleep. She thought he was just excited from the fall and discombobulated from it. He awoke around 3 and the noted some difficulty with speaking and expressing content. No noted focal weakness. He was still somewhat agitated. He wanted to go back to sleep. He woke again this morning and still seemed to have some expressive aphasia. EMS was called and brought him here with a code stroke. He is improving en route and here is able to talk about at his baseline. He does not feel bothered by his a expressivity. He is content sounds clear to me. No obvious head injury from his fall yesterday. There is no tenderness or headache. With the abrupt evaluation under the code stroke, he went to CT scan abruptly with a CT and CTA. At that point I was able to investigate his prior records better and he had been here about a week ago with some confusion. He had a CT and CTA and subsequent MRI and MRA which did not show any acute mass effect bleeding or stroke. There was found some occlusion of the left vertebral artery but reconstituted up higher with normal posterior flow otherwise. At this point we will also check some blood test to look for any electrolyte or other problems. The initial CT reading was negative for any acute intracranial pathology. Pending is the CTA report. The timing on his pain med was 1/2 hour prior to onset of agitation adn then trouble speaking. Is improved enroute this moring, so timing would be med wearing off. He has had [place] in the past iwthout problems but compounded with recent fall, could have some concussive effect, and also with subsequent labs, the moderate low sodium may have contributed as well. It does not sound stroke like as much now in lieu of improving symptoms the type of symptoms and recent MRI/MRA being good. CT this evening was still improtant due to fall earlier and then neuro symptoms to ensure no ICH/subdural/etc. CTA and further labs pending [facility]. Care to Dr. Goodman. Departure - Departure Disposition: 01 Home, Self Care Clinical Impression: Aphasia, Confusion, Low magnesium level Condition: Stable Instructions: Hypomagnesemia Dc, Hyponatremia Dc Follow-Up: your,doctor in 1 week [Other] Comments: Your basic CT scan is normal. Your chemistry panel shows a low magnesium level and slightly low sodium. A low sodium can sometimes can get you confused, though yours was not that low per se. blood sugar was okay. Basic blood count was okay as well. I am assuming your difficulty speaking and confusion and agitation last night was a combination of missing some dose of your Sinemet in combination with the pain pill and likely some effect from falling even if there was not clear concussion per se, and the moderately low electrolytes. Stay well-hydrated but also has some electrolyte solutions and in particular add a magnesium supplement daily for the next week or 2. If you need the pain medicine hydrocodone, try just a half a tablet and see how you do with that. I would suggest using Tylenol/acetaminophen 500 to 650 mg 4 times daily regularly for pain as a baseline and hopefully therefore need less of the opiate pain medicine. Recheck if recurrent symptoms. Forms: PCP List Discharge Date/Time: 03/07/24 08:40
[2024-03-07 06:35] LABS: BASOPHILS % (AUTO) 0.2 %; EOSINOPHILS # (AUTO) 0.1 10^3/uL (0.0-0.7); EOSINOPHILS % (AUTO) 0.8 %; HCT - HEMATOCRIT 38.3 % (42.0-52.0); HGB - HEMOGLOBIN 12.9 g/dL (14.0-18.0); LYMPHOCYTES # (AUTO) 0.9 10^3/uL (1.5-3.5); LYMPHOCYTES % (AUTO) 9.5 %; MEAN CORPUSCULAR HEMOGLOBIN 28.9 pg (27.0-31.0); MEAN CORPUSCULAR HGB CONC 33.7 g/dL (32.0-36.0); MEAN CORPUSCULAR VOLUME 85.7 fL (80.0-94.0); MEAN PLATELET VOLUME 9.4 fL (7.4-11.4); MONOCYTES # (AUTO) 0.5 10^3/uL (0.0-1.0); MONOCYTES % (AUTO) 5.6 %; NEUTROPHILS # (AUTO) 7.6 10^3/uL (1.5-6.6); NEUTROPHILS % (AUTO) 83.6 %; PLT - PLATELET COUNT 189 10^3/uL (130-450); RED BLOOD COUNT 4.47 10^6/uL (4.70-6.10); RED CELL DISTRIBUTION WIDTH 13.4 % (12.0-15.0); WHITE BLOOD COUNT 9.1 x10^3/uL (4.8-10.8)
[2024-03-07 06:46] LABS: MAGNESIUM 1.2 mg/dL (1.7-2.3)
[2024-03-07] MEDS ORDERED: iohexoL-300 100 ML VIAL ONE (06:50)
[2024-03-07 06:53] LABS: ALBUMIN 3.9 g/dL (3.2-5.5); ALBUMIN/GLOBULIN RATIO 1.6 (1.0-2.2); BILIRUBIN,TOTAL 1.2 mg/dL (0.2-1.0); CALCIUM 9.2 mg/dL (8.5-10.3); CREATININE 0.9 mg/dL (0.6-1.3); POTASSIUM 4.2 mmol/L (3.5-4.5); TOTAL PROTEIN 6.3 g/dL (6.4-8.9)
[2024-03-07] MEDS: iohexoL-300 100 ML VIAL IVP ONE (06:54)
[2024-03-07] MEDS: MAGNESIUM SULFATE 2 GRAM 2 GM/50 ML BAG IV ONE (07:39)
[2024-03-07] MEDS: SODIUM CHLORIDE 0.9% 1,000 ML IV STA (07:39)
[2024-03-07 08:34] VITALS: BP 151/101; O2SAT 94
--- NOTE | 2024-03-07 09:18 | CT Report ---
PROCEDURE: Head W/O Stroke Protocol INDICATIONS: word aphasia about 3 am TECHNIQUE: Noncontrast 4.5 mm thick angled axial sections acquired from the foramen magnum to the vertex, with c oronal reformats. For radiation dose reduction, the following was used: automated exposure control, adjustment of mA and/or kV according to patient size. COMPARISON: 01/29/2024, 07/28/2023. Correlation is also made with the accompanying imaging. FINDINGS: Image quality: Excellent. CSF spaces: Basal cisterns are patent. No extra-axial fluid collections. Ventricles are normal in size and shape. Brain: No midline shift. No intracranial masses or hemorrhage. Perry-white matter interface is norm al. Skull and face: Calvarium and visualized facial bones are intact, without suspicious lesions. Age-a ppropriate brain parenchymal volume loss and chronic small vessel ischemic change can be seen. Sinuses: Visualized sinuses and mastoids are clear. IMPRESSION: Unremarkable noncontrast head CT for age, stable from prior. Number: Findings of this case relayed to Dr. Dong at 6:57 AM [place] time on 03/07/2024. Note: No significant discrepancy from the preliminary report. This study fulfills neurological imaging criteria for inclusion or exclusion of acute stroke therapie s based on available published neurological imaging guidelines. Reviewed by: Gutierrez Yanez MD on 03/07/2024 8:16 AM PAPO Approved by: Gutierrez Yanez MD on 03/07/2024 8:16 AM PAPO Station ID: [id number]
--- NOTE | 2024-03-07 09:22 | CT Report ---
PROCEDURE: Angio Head/Neck INDICATIONS: word search, confused for 15 min today TECHNIQUE: After the administration of intravenous contrast, 1 mm thick sections acquired from the aortic arch t hrough the [place] of [place]. 3-dimensional sfkhaqx-ctcswdgns-plnckupugb (MIP) and/or volume renderin g reformats were acquired of the central intracranial vasculature and neck separately. For radiation dose reduction, the following was used: automated exposure control, adjustment of mA and/or kV acco rding to patient size. CONTRAST: 100 ML OMNI 300 COMPARISON: 01/29/2024. Correlation is also made with the accompanying imaging. FINDINGS: Image quality: Limited by bolus timing, with venous contamination. HEAD CT: CSF Spaces: Basal cisterns are patent. No extra-axial fluid collections. Ventricles are normal in size and shape. Brain: No significant abnormality is seen for scanning technique. Skull and face: Calvarium and visualized facial bones appear intact, without suspicious lesions. Sinuses: Visualized sinuses and mastoids are clear. HEAD CT ANGIOGRAPHY: Anterior circulation: Intracranial internal carotid arteries are normal in size and flow. The flow within the paired anterior cerebral arteries is normal and symmetric. The flow within the middle cer ebral arteries is normal and symmetric. The anterior communicating artery is seen. No aneurysms are seen. Posterior circulation: The left V4 segment demonstrates poor flow. The right V4 segment is within no rmal limits. The vertebral arteries join to form a normal appearing basilar artery. Incidental note is made of a prominent left posterior communicating artery, with a diminutive left P1 segment. This is attributed to a type origin of the right posterior cerebral artery, which is considered to b e a developmental variant of typically no clinical consequence. The flow within the posterior cereb ral arteries is normal and symmetric. No stenoses, occlusions, or aneurysms. NECK CT ANGIOGRAPHY: Carotid system: The great vessels demonstrate a conventional anatomy as they arise from the aortic a rch. The origins of the common carotid arteries appear patent. The common carotid arteries demonstr ate normal caliber and courses. The bifurcation regions demonstrate atherosclerotic irregularity and calcification, yet without a hemodynamically significant stenosis. The more distal internal carotid arteries demonstrate normal course and caliber. Posterior circulation: The left vertebral artery is occluded at its origin. There is partial restorat ion of blood flow seen at the distal V3 level. The origin of the right vertebral artery is within nor mal limits. The flow within the right vertebral artery is unremarkable. Soft tissues: Visualized neck soft tissues demonstrate no suspicious abnormalities. Bones: No suspicious bony lesions. Visualized cervical spine appears normally aligned. 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 There is some confucianism of blood flow seen in the distal V3 level. The appea mariana is similar to the prior. No significant carotid abnormality can be seen, with note made of calcification and irregularity of t he carotid bifurcations. No significant intracranial abnormality is seen. Note: No significant discrepancy from the preliminary report. The estimate of stenosis included in the report of the imaging study was calculated using the NASCET method Reviewed by: Gutierrez Yanez MD on 03/07/2024 8:21 AM PAPO Approved by: Gutierrez Yanez MD on 03/07/2024 8:21 AM PAPO Station ID: [id number]
== END 2024-03-07 08:40 | disposition home or self-care (01) ==
LOC: ED 06:13
DX: R47.01 Aphasia (principal); R41.0 Disorientation, unspecified; E83.42 Hypomagnesemia; I10 Essential (primary) hypertension; G20.A1 Parkinson's disease without dyskinesia, without mention of fluctuations; N40.0 Benign prostatic hyperplasia without lower urinary tract symptoms; Z79.899 Other long term (current) drug therapy
CPT/HCPCS: 36415; 70450; 70496; 70498; 80053; 83690; 83735; 85025; 93005; 96365; 99284; 99285; Q9967

== ENCOUNTER 2024-03-16 15:24 | Outpatient (CLI) | payer OTHER ==
--- NOTE | 2024-03-17 09:40 | XRAY Report ---
PROCEDURE: Wrist 3+V LT INDICATIONS: LEFT WRIST PAIN TECHNIQUE: 3 views of the wrist were acquired. COMPARISON: 03/06/2024 FINDINGS: Bones: A nondisplaced intra-articular distal radial fracture is in similar position compared to the prior exam. Overlying fiberglass cast. Suggestion of ulnar styloid fracture nondisplaced Soft tissues: No suspicious soft tissue calcifications or masses. IMPRESSION: Nondisplaced distal radial and ulnar fractures in cast, unchanged Reviewed by: Tito Beatty MD on 03/17/2024 8:39 AM PAPO Approved by: Tito Beatty MD on 03/17/2024 8:39 AM PAPO Station ID: [id number]
== END 2024-03-16 15:25 | disposition home or self-care (01) ==
LOC: DI 15:24
PROVIDERS: ATTEND Orthopaedic Surgery
DX: S52.502A Unspecified fracture of the lower end of left radius, initial encounter for closed fracture (principal); S52.602A Unspecified fracture of lower end of left ulna, initial encounter for closed fracture

== ENCOUNTER 2024-04-06 11:34 | Emergency (ER) | payer OTHER ==
--- NOTE | 2024-04-06 12:17 | ED Physician Documentation ---
History of Present Illness - Stated complaint Stated Complaint: C+,DIZZINESS,CONFUSION - Chief complaint Chief Complaint: Neuro - History obtained from History obtained from: Patient - Additonal information Additional information: Patient is a 69-year-old male presenting to the emergency department with Cough congestion. Symptoms started today. Patient notes no reportable fever he notes decreased eating and drinking this morning and generalized fatigue. He notes no headaches no vision changes no numbness tingling or weakness. He recently was exposed to COVID and tested positive this morning at home for COVID-19. Patient received vaccines in the past. His tested positive for COVID on Saturday. Patient has not been on any antivirals.He has not taken anything for his symptoms this morning. PD PAST MEDICAL HISTORY - Past Medical History Cardiovascular: Hypertension Respiratory: None Neuro: Parkinson's Endocrine/Autoimmune: None GI: None : Benign prostate hypertrophy HEENT: None Psych: None Musculoskeletal: None Derm: None - Past Surgical History Past Surgical History: Yes General: Other - Present Medications Home Medications: Ambulatory Orders Medication Instructions Recorded Confirmed Atorvastatin [Lipitor] 20 mg PO DAILY 11/15/23 01/09/24 Carbidopa/Levodopa ER 50/200 1 tab PO QID 11/15/23 01/09/24 [Sinemet Cr 50 mg/200 mg] Melatonin 3 mg PO QPM 11/15/23 01/09/24 Omeprazole 20 mg PO BID 11/15/23 01/09/24 Rasagiline [Azilect] 1 mg PO DAILY 11/15/23 01/09/24 Tacrolimus [Prograf] 0.5 mg PO BID 11/15/23 01/09/24 Carbidopa/Levodopa 2 tab PO QID 11/16/23 01/09/24 [Carbidopa-Levodopa 25-100 Tab] oxyCODONE [Roxicodone] 5 mg PO Q6H PRN #18 tablet 01/09/24 Oxycodone HCl/Acetaminophen 1 - 2 each PO Q6H PRN #14 tablet 03/06/24 [Percocet 5-325 mg Tablet] Molnupiravir [Lagevrio (Eua)] 800 mg PO BID 5 Days #40 cap 04/06/24 - Allergies Allergies/Adverse Reactions: Allergies Allergy/AdvReac Type Severity Reaction Status Date / Time No Known Drug Allergies Allergy Verified 04/06/24 11:55 - Social History Does the pt smoke?: No Smoking Status: Never smoker Does the pt drink ETOH?: No Does the pt have substance abuse?: No - Immunizations Immunizations are current?: Yes PD ED PE NORMAL - Vitals Vital signs reviewed: Yes - General General: Alert and oriented X 3 - HEENT HEENT: Atraumatic - Neck Neck: Supple, no meningeal sign - Cardiac Cardiac: RRR, No murmur, No gallop, No rub - Respiratory Respiratory: No respiratory distress, Clear bilaterally - Abdomen Abdomen: Normal bowel sounds, Soft, Non tender, Non distended - Extremities Extremities: No deformity, No edema - Neuro Neuro: Alert and oriented X 3 Eye Opening: Spontaneous Motor: Obeys Commands Verbal: Oriented GCS Score: 15 - Psych Psych: Normal mood Results - Vitals Vitals: Vital Signs - 24 hr 04/06/24 04/06/24 04/06/24 11:49 12:29 12:30 Temperature 37 C 37.4 C 37.4 C Heart Rate 107 H 107 H 107 H Respiratory 20 16 16 Rate Blood Pressure 150/79 H 155/91 H 155/91 H O2 Saturation 94 96 95 04/06/24 04/06/24 04/06/24 13:00 13:30 14:46 Temperature Heart Rate 105 H 102 H 98 Respiratory 14 14 16 Rate Blood Pressure 151/85 H 170/90 H 173/128 H O2 Saturation 94 96 97 Oxygen O2 Source Room air - Labs Labs: Laboratory Tests 04/06/24 04/06/24 04/06/24 12:13 12:13 12:13 WBC 7.7 RBC 4.81 Hgb 14.0 Hct 42.7 MCV 88.8 MCH 29.1 MCHC 32.8 RDW 13.9 Plt Count 175 MPV 10.3 Neut # (Auto) 6.4 Lymph # (Auto) 0.6 L [place] # (Auto) 0.6 Eos # (Auto) 0.0 Baso # (Auto) 0.0 Absolute Nucleated RBC 0.00 Nucleated RBC % 0.0 PT 14.3 H INR 1.3 H Sodium 133 L Potassium 4.9 H Chloride 96 L Carbon Dioxide 31 Anion Gap 6.0 BUN 15 Creatinine 0.9 Estimated GFR (MDRD) 84 L Glucose 176 H Calcium 9.9 Total Bilirubin 1.1 H AST 19 ALT 34 Alkaline Phosphatase 125 H Total Protein 7.5 Albumin 4.4 Globulin 3.1 Albumin/Globulin Ratio 1.4 Lipase 19 - Rads (name of study) Chest X-ray Relevant Findings:: EMP independent interpretation of test PD Medical Decision Making - ED course Complexity details: reviewed old records, reviewed results ED course: Patient is a 69-year-old male presenting to the emergency department with cough congestion COVID-positive at home. Patient recently exposed to COVID with his on Saturday. Patient has history remarkable for immunocompromised after liver transplant is on maintenance tacrolimus. He notes no fevers yet he has generalized fatigue chills. Patient has not take anything for symptoms prior to coming in. His was diagnosed started on Paxlovid at home and he is wondering if he can be started on that as well. Labs here in the emergency department show no leukocytosis no significant elevation in LFTs mild hyperk alemia however most likely secondary to dehydration patient given fluids here in emergency department as well as ibuprofen he is feeling significantly better. Discussed with patient chest x-ray here shows no acute cardiopulmonary findings. He feels safe to go home. Patient will follow-up with his PCP in 1 week. Will start patient on on the part of your because of interactions with tacrolimus w ith Paxlovid and remdesivir. Departure - Departure Disposition: 01 Home, Self Care Clinical Impression: COVID-19, Headache, Dehydration, Hyperkalemia Condition: Good Instructions: Hyperkalemia Dc, ED Viral Syndrome Prescriptions: Molnupiravir [Lagevrio (Eua)] 800 mg PO BID 5 Days #40 cap Comments: Follow-up with your PCP in 1 week after symptoms resolved to ensure improvement in symptoms additionally follow-up with PCP to ensure repeat labs for improvement hyperkalemia no signs of dehydration no injury to kidneys or liver after starting antiviral. Forms: PCP List
[2024-04-06] MEDS: IBUPROFEN 800 MG TABLET PO STA (12:20)
[2024-04-06 12:33] LABS: INR 1.3 (0.8-1.2); PT - PROTHROMBIN TIME 14.3 secs (9.9-12.6)
[2024-04-06 12:36] LABS: ALBUMIN 4.4 g/dL (3.2-5.5); ALBUMIN/GLOBULIN RATIO 1.4 (1.0-2.2); BILIRUBIN,TOTAL 1.1 mg/dL (0.2-1.0); CALCIUM 9.9 mg/dL (8.5-10.3); CREATININE 0.9 mg/dL (0.6-1.3); POTASSIUM 4.9 mmol/L (3.5-4.5); TOTAL PROTEIN 7.5 g/dL (6.4-8.9)
--- NOTE | 2024-04-06 13:22 | XRAY Report ---
PROCEDURE: Chest 1V INDICATIONS: cough, sob TECHNIQUE: One view of the chest was acquired. COMPARISON: 11/11/2023. FINDINGS: Surgical changes and devices: None. Lungs and pleura: No pleural effusions or pneumothorax. Lungs are clear. Mediastinum: Mediastinal contours appear normal. Heart size is normal. Bones and chest wall: No suspicious bony lesions. Overlying soft tissues appear unremarkable. IMPRESSION: No acute cardiopulmonary process. Reviewed by: Gallito Marie MD on 04/06/2024 1:21 PM PDT Approved by: Gallito Marie MD on 04/06/2024 1:21 PM PDT Station ID: [id number]
[2024-04-06 14:22] LABS: BASOPHILS % (AUTO) 0.3 %; EOSINOPHILS % (AUTO) 0.5 %; HCT - HEMATOCRIT 42.7 % (42.0-52.0); LYMPHOCYTES # (AUTO) 0.6 10^3/uL (1.5-3.5); LYMPHOCYTES % (AUTO) 8.3 %; MEAN CORPUSCULAR HEMOGLOBIN 29.1 pg (27.0-31.0); MEAN CORPUSCULAR HGB CONC 32.8 g/dL (32.0-36.0); MEAN CORPUSCULAR VOLUME 88.8 fL (80.0-94.0); MEAN PLATELET VOLUME 10.3 fL (7.4-11.4); MONOCYTES # (AUTO) 0.6 10^3/uL (0.0-1.0); MONOCYTES % (AUTO) 7.8 %; NEUTROPHILS # (AUTO) 6.4 10^3/uL (1.5-6.6); NEUTROPHILS % (AUTO) 82.7 %; PLT - PLATELET COUNT 175 10^3/uL (130-450); RED BLOOD COUNT 4.81 10^6/uL (4.70-6.10); RED CELL DISTRIBUTION WIDTH 13.9 % (12.0-15.0); WHITE BLOOD COUNT 7.7 x10^3/uL (4.8-10.8)
[2024-04-06] MEDS: SODIUM CHLORIDE 0.9% 1,000 ML IV STA (14:46)
[2024-04-06 15:54] VITALS: BP 140/90; O2SAT 96
== END 2024-04-06 15:50 | disposition home or self-care (01) ==
LOC: ED 11:34
DX: R07.1 Chest pain on breathing (principal); E86.0 Dehydration; E87.5 Hyperkalemia; R51.9 Headache, unspecified; G20.A1 Parkinson's disease without dyskinesia, without mention of fluctuations; I10 Essential (primary) hypertension; Z79.899 Other long term (current) drug therapy
CPT/HCPCS: 36415; 71045; 80053; 83690; 85025; 85610; 93005; 96360; 99283; 99284; A9270

== ENCOUNTER 2024-04-15 12:41 | Outpatient (CLI) | payer OTHER ==
--- NOTE | 2024-04-15 14:29 | XRAY Report ---
PROCEDURE: Wrist 3+V LT INDICATIONS: L WRIST FX TECHNIQUE: 3 views of the wrist were acquired. COMPARISON: X-rays of the wrist dated 02/05/2024, 03/16/2024. FINDINGS: Bones: Disuse osteopenia. Intra-articular distal radial and ulnar styloid fractures are again identif ied and similar alignment. Interval callus formation noted. Soft tissues: Atherosclerotic vascular calcifications. Mild diffuse soft tissue swelling. IMPRESSION: Distal radial and ulnar fractures again noted. Reviewed by: Frank Deng MD on 04/15/2024 2:28 PM PDT Approved by: Frank Deng MD on 04/15/2024 2:28 PM PDT Station ID: [id number]
== END 2024-04-15 12:42 | disposition home or self-care (01) ==
LOC: DI 12:41
PROVIDERS: ATTEND Orthopaedic Surgery
DX: S52.532D Colles' fracture of left radius, subsequent encounter for closed fracture with routine healing (principal); S52.602D Unspecified fracture of lower end of left ulna, subsequent encounter for closed fracture with routine healing